=== PATIENT | male | born 1995 | race Caucasian/White ===

== ENCOUNTER 2020-05-29 23:26 | Inpatient (IN) | payer OTHER, SELFPAY ==
[2020-05-29 23:27] VITALS: BP 91/69; PULSE 105; RESP 18; TEMP 36.8; O2SAT 94; BMI 37.7
--- NOTE | 2020-05-29 23:36 | ED_ITS ---
HPI - Psych General: Chief Complaint: Psychiatric Symptoms Stated Complaint: SI Time Seen by Provider: 05/29/20 23:28 History of Present Illness: HPI Narrative: Patient is a 24-year-old male comes to the ED via ambulance for SI. Patient says on May 25 he had a suicide attempt by overdosing on unknown drug. Patient says he does have a past history of meth abuse for approximately 10 years. He admits to recent methamphetamine use within the past several days. Is complaining of having thoughts of self- harm and insomnia for the past 8 days. He states that he is currently depressed and anxious. He said his depression stems from his son passing away a couple years ago. Patient says he has been prescribed psych medications but has not been taking them but is not sure what meds he is on currently. patient would like to be admitted to the [facility]. MD complaint: suicidal ideation Associated symptoms: Reports depression and suicidal ideation; Deny auditory hallucinations or visual hallucinations Review of Systems Const: Denies: fever(s), chills or fatigue Eyes: Denies: change in vision or eye discomfort ENMT: Denies: throat pain, odynophagia, nasal discharge or nasal congestion Card: Denies: chest pain, palpitations, edema, swelling of feet/ankles, dyspnea on exertion or orthopnea Resp: Denies: dyspnea, productive cough or non-productive cough GI: Denies: abdominal pain, nausea, vomiting, diarrhea, constipation or hematochezia : Denies: flank pain, difficulty urinating, dysuria or hematuria Musc: Denies: neck pain, back pain or extremity swelling Skin/Breast: Denies: rash or new lesions Neuro: Denies: headache(s), numbness in extremities or weakness in extremities Psych: Reports: anxiety, depression, sleeping less and suicidal ideation; Denies: visual hallucinations or auditory hallucinations Physical Exam Const: COMMON NORMALS: patient oriented x3 and alert GENERAL APPEARANCE: cooperative and anxious HENMT: COMMON NORMALS: normocephalic HEAD & SCALP: normocephalic MOUTH: Normal oral and palatal mucosa present THROAT: posterior oropharynx normal and uvula midline Eye: COMMON NORMALS: Equal, round and reactive pupils present PUPIL: Yes Equal, round and reactive pupils present Neck/C-Spine: COMMON NORMALS: supple GENERAL: Yes normal visual inspection Resp: COMMON NORMALS: normal respiratory effort, No retractions, No use of accessory muscles and clear to auscultation bilaterally AUSCULTATION: clear to auscultation bilaterally Cardio: COMMON NORMALS: regular rate, regular rhythm, S1 normal heart sound present, S2 normal heart sound present, No gallops present (Cardio), No clicks present (Cardio), No murmurs present (Cardio) and Peripheral pulses 2+ throughout RATE: regular rate RHYTHM: regular rhythm HEART SOUNDS: S1 normal heart sound present and S2 normal heart sound present PERIPHERAL PULSES: Peripheral pulses 2+ throughout GI: COMMON NORMALS: Normal to inspection, nondistended, normoactive bowel sounds present, Soft to palpation, non-tender and no masses PALPATION: Yes Soft to palpation : COMMON NORMALS: Yes no CVA tenderness BLADDER/KIDNEY EXAM: Yes no CVA tenderness Back/Pelvis: COMMON NORMALS: no CVA tenderness Neuro: COMMON NORMALS: patient oriented x3 and moves all extremities SENSORIUM/ORIENTATION: Yes alert Psych: COMMON NORMALS: Normal thought process present APPEARANCE: Yes grossly normal ATTITUDE: Yes paranoid and Yes agitated ACTIVITY/MOTOR BEHAVIOR: Yes fidgeting, Yes hyperactivity and Yes restless SPEECH: Yes rapid MOOD & AFFECT: Yes anxious, Yes irritable (He gets slightly irritated when I asked him a question about his past.) and Yes tearful THOUGHT PROCESS: Normal thought process present THOUGHT CONTENT: Yes Suicidality present and No Hallucination(s) present ATTENTION/CONCENTRATION: Yes attention grossly intact and Yes concentration grossly intact MEMORY/COGNITION: Yes memory grossly intact and Yes cognition grossly intact INSIGHT: Limited insight present (Psych) JUDGEMENT: Limited judgement present (Psych) Skin: GENERAL SKIN EXAM: dry skin MDM - Psych MDM Narrative: Medical decision making narrative: Patient is a 24-year-old male comes to the ED with SI. History of methamphetamine abuse and states he tried to overdose on unknown drug on May 25, 2020. He currently is under the influence of methamphetamines. He has been depressed, anxious and has not been able to sleep for about 8 days. He has been thinking a lot about harming himself. Psych screening labs performed. I contacted Dr. Ziegler and told about patient case and he accepts admission of pt to [facility]. I completed and signed paperwork for affidavit and 96-hour hold in place today on file just in case patient wants to leave. Patient was transferred to [facility]. Lab Data: Attestation: I reviewed the patient's lab results. Labs: Lab Results 05/29/20 05/29/20 05/29/20 Range/Units 23:30 23:30 23:37 WBC 14.2 H (4.0-10.0) 10^3/ uL RBC 6.13 H (4.1-5.3) 10^6/u L Hgb 18.1 H (11.7-16.6) g/dL Hct 51.9 (42.0-52.0) % MCV 84.7 (80-94) fL MCH 29.5 (28.0-34.0) pg MCHC 34.9 (30.0-36.0) g/dL RDW 11.9 L (12.1-15.1) % Plt Count 280 (130-400) 10^3/c mm MPV 9.5 (7.4-10.4) fL Neut % (Auto) 57.7 % Lymph % (Auto) 26.0 % [place] % (Auto) 11.6 % Eos % (Auto) 3.7 % Baso % (Auto) 0.7 % Neut # (Auto) 8.17 H (1.8-7.7) 10^3/u L Lymph # (Auto) 3.7 (0.8-4.8) 10^3/u L [place] # (Auto) 1.6 H (0.2-0.9) 10^3/u L Eos # (Auto) 0.5 (0.0-0.8) 10^3/u L Baso # (Auto) 0.1 (0.0-0.1) 10^3/u L Nucleated RBC % (a uto) 0 % Nucleated RBCs # 0.0 /100WBC Sodium (136-145) mmol/L Potassium (3.5-5.1) mmol/L Chloride (98-107) mmol/L Carbon Dioxide (22-29) mmol/L Anion Gap (5-19) BUN (6-20) mg/dL Creatinine (0.7-1.2) mg/dL GFR Calculation (90-130) mL/min Glucose (65-115) mg/dL Calculated Osmolal ity (285-295) mOsm/k g Calcium (8.5-10.5) mg/dL Total Bilirubin (0.15-1.2) mg/dL AST (0-40) U/L ALT (0-41) U/L Alkaline Phosphata se (40-130) IU/L Total Protein (6.6-8.7) g/dL Albumin (3.5-5.2) g/dL Globulin (1.3-4.6) g/dL Urine Color Dark yellow (Yellow) Urine Appearance Hazy A (CLEAR) Urine pH 5 (5-7) Ur Specific Gravit y 1.025 (1.005-1.030) Urine Protein Trace (Negative) Urine Glucose (UA) Norm (Normal) Urine Ketones 1+ H (Negative) Urine Blood Neg (Negative) Urine Nitrate Negative (Negative) Urine Bilirubin 1+ H (Negative) Urine Urobilinogen 8 H (Negative) mg/dL Ur Leukocyte Ernestine ase Negative (Negative) Urine RBC 0-4 H (0-2) /hpf Urine WBC None (0-5) /hpf Ur Squamous Epith Cells 0-4 H (0-5) /hpf Amorphous Sediment Not Reportable Urine Bacteria 1+ H (NONE) /hpf Hyaline Casts 0-4 H /lpf Fine Granular Cast s 0-4 H /lpf Urine Mucus 4+ /hpf Salicylates (3-10) mg/dL Urine Opiates Scre en Negative (Negative) ng/mL Acetaminophen (10-30) ug/mL Ur Barbiturates Sc reen Negative (Negative) ng/mL Ur Phencyclidine S crn Negative (Negative) ng/mL Ur Amphetamines Sc reen Positive H (Negative) ng/mL U Benzodiazepines Scrn Negative (Negative) ng/mL Urine Cocaine Scre en Negative (Negative) ng/mL U Marijuana (THC) Screen Positive H (Negative) ng/mL Ethyl Alcohol (0-10) mg/dL 05/29/20 Range/Units 23:37 WBC (4.0-10.0) 10^3/ uL RBC (4.1-5.3) 10^6/u L Hgb (11.7-16.6) g/dL Hct (42.0-52.0) % MCV (80-94) fL MCH (28.0-34.0) pg MCHC (30.0-36.0) g/dL RDW (12.1-15.1) % Plt Count (130-400) 10^3/c mm MPV (7.4-10.4) fL Neut % (Auto) % Lymph % (Auto) % [place] % (Auto) % Eos % (Auto) % Baso % (Auto) % Neut # (Auto) (1.8-7.7) 10^3/u L Lymph # (Auto) (0.8-4.8) 10^3/u L [place] # (Auto) (0.2-0.9) 10^3/u L Eos # (Auto) (0.0-0.8) 10^3/u L Baso # (Auto) (0.0-0.1) 10^3/u L Nucleated RBC % (a uto) % Nucleated RBCs # /100WBC Sodium 136 (136-145) mmol/L Potassium 4.2 (3.5-5.1) mmol/L Chloride 99 (98-107) mmol/L Carbon Dioxide 24 (22-29) mmol/L Anion Gap 17.2 (5-19) BUN 18 (6-20) mg/dL Creatinine 0.9 (0.7-1.2) mg/dL GFR Calculation 102.8 (90-130) mL/min Glucose 116 H (65-115) mg/dL Calculated Osmolal ity 285 (285-295) mOsm/k g Calcium 10.0 (8.5-10.5) mg/dL Total Bilirubin 1.3 H (0.15-1.2) mg/dL AST 46 H (0-40) U/L ALT 57 H (0-41) U/L Alkaline Phosphata se 88 (40-130) IU/L Total Protein 8.3 (6.6-8.7) g/dL Albumin 5.0 (3.5-5.2) g/dL Globulin 3.3 (1.3-4.6) g/dL Urine Color (Yellow) Urine Appearance (CLEAR) Urine pH (5-7) Ur Specific Gravit y (1.005-1.030) Urine Protein (Negative) Urine Glucose (UA) (Normal) Urine Ketones (Negative) Urine Blood (Negative) Urine Nitrate (Negative) Urine Bilirubin (Negative) Urine Urobilinogen (Negative) mg/dL Ur Leukocyte Ernestine ase (Negative) Urine RBC (0-2) /hpf Urine WBC (0-5) /hpf Ur Squamous Epith Cells (0-5) /hpf Amorphous Sediment Urine Bacteria (NONE) /hpf Hyaline Casts /lpf Fine Granular Cast s /lpf Urine Mucus /hpf Salicylates < 0.3 L (3-10) mg/dL Urine Opiates Scre en (Negative) ng/mL Acetaminophen < 5.0 L (10-30) ug/mL Ur Barbiturates Sc reen (Negative) ng/mL Ur Phencyclidine S crn (Negative) ng/mL Ur Amphetamines Sc reen (Negative) ng/mL U Benzodiazepines Scrn (Negative) ng/mL Urine Cocaine Scre en (Negative) ng/mL U Marijuana (THC) Screen (Negative) ng/mL Ethyl Alcohol < 10 (0-10) mg/dL Discharge Plan Discharge Patient Disposition: Admitted As Inpatient Admit Provider: Delfino Ziegler Coding Level of Care Code ED [employer] for [employer] Fwd Exam Comprehensive
[2020-05-29 23:52] LABS: Basophils # 0.1 10^3/uL (0.0-0.1); Basophils % 0.7 %; Eosinophils # 0.5 10^3/uL (0.0-0.8); Eosinophils % 3.7 %; Hematocrit 51.9 % (42.0-52.0); Hemoglobin 18.1 g/dL (11.7-16.6); Lymphocytes # 3.7 10^3/uL (0.8-4.8); Mean Corpuscular HGB Conc 34.9 g/dL (30.0-36.0); Mean Corpuscular Hemoglobin 29.5 pg (28.0-34.0); Mean Corpuscular Volume 84.7 fL (80-94); Mean Platelet Volume 9.5 fL (7.4-10.4); Monocytes # 1.6 10^3/uL (0.2-0.9); Monocytes % 11.6 %; Neutrophils # 8.17 10^3/uL (1.8-7.7); Neutrophils % 57.7 %; Nucleated Red Blood Cells % 0 %; Platelet Count 280 10^3/cmm (130-400); Red Blood Count 6.13 10^6/uL (4.1-5.3); Red Cell Distribution Width 11.9 % (12.1-15.1); White Blood Count 14.2 10^3/uL (4.0-10.0)
[2020-05-30] VITALS (9 sets, daily range): BP systolic 91–142; BP diastolic 69–83; PULSE 90–136; RESP 13–18; TEMP 36.7–37; O2SAT 89–95
[2020-05-30 00:05] LABS: Acetaminophen < 5.0 ug/mL (10-30); Alanine Aminotransferase 57 U/L (0-41); Alcohol Level < 10 mg/dL (0-10); Alkaline Phosphatase 88 IU/L (40-130); Anion Gap 17.2 (5-19); Aspartate Amino Transferase 46 U/L (0-40); Blood Urea Nitrogen 18 mg/dL (6-20); Carbon Dioxide 24 mmol/L (22-29); Chloride 99 mmol/L (98-107); Creatinine Clr Calc Pharmacy 152.6881; Globulin 3.3 g/dL (1.3-4.6); Glomerular Filtration Rate 102.8 mL/min (90-130); Glucose 116 mg/dL (65-115); Osmolality Calculated 285 mOsm/kg (285-295); Potassium 4.2 mmol/L (3.5-5.1); Salicylate < 0.3 mg/dL (3-10); Sodium 136 mmol/L (136-145); Total Bilirubin 1.3 mg/dL (0.15-1.2); Total Protein 8.3 g/dL (6.6-8.7)
[2020-05-30] MEDS: LORazepam 2 mg/mL INJ 1 mL IM (00:11)
[2020-05-30 00:47] LABS: Amphetamines Screen Urine Positive (Negative); Barbiturates Screen Urine Negative (Negative); Benzodiazepines Screen Urine Negative (Negative); Cocaine Screen Urine Negative (Negative); Opiate Screen Urine Negative (Negative); PCP Screen Urine Negative (Negative); THC Screen Urine Positive (Negative)
[2020-05-30 00:49] LABS: Bilirubin Urine 1+ (Negative); Blood Urine Neg (Negative); Glucose Urine UA Norm (Normal); Ketones Urine 1+ (Negative); Leukocyte Esterase Urine Negative (Negative); Nitrate Urine Negative (Negative); Protein Urine Trace (Negative); Specific Gravity, Urine 1.025 (1.005-1.030); Urine Appearance Hazy (CLEAR); Urine Color Dark Yellow (Yellow); Urobilinogen Urine 8 mg/dL (Negative); pH Urine 5 (5-7)
[2020-05-30 00:51] LABS: Add Urine Culture? No; Bacteria Urine 1+ /hpf; Fine Granular Casts Urine 0-4 /lpf; Hyaline Casts Urine 0-4 /lpf; Mucus Urine 4+ /hpf; RBC Urine 0-4 /hpf (0-2); Squamous Epithelial Cell Urine 0-4 /hpf (0-5)
--- NOTE | 2020-05-30 12:02 | PC.NURSE ---
Agitation/Shortness of breath Patient came to the nurses station about 30 minutes ago demanding to use his inhaler that he brought in with him on admission. When asked who prescribed this medication and how frequently he was ordered to use it, he told staff that it his mother got the inhaler for him. Unable to tell us pharmacy or prescriber. Explained to the patient we would inform Dr. Ziegler of this situation and request for an inhaler. Dr. Ziegler gave order for RT to assess and treat. RT came to see patient and administer an albuterol inhaler at this time. Patient was near nurses station when RT went to administer inhaler and patient continued to raise voice and yell that this was stupid (due to there being a spacer on the inhaler), RT explained the need for the spacer, patient continued to be agitated and yelling at RT. Patient then walked away from nurses station and back to his room.
[2020-05-30] MEDS: albuterol 8 gm MDI 2 PUFF INHALATION ×3 (12:53→19:35)
--- NOTE | 2020-05-30 15:00 | PC.RESP ---
This therapist unable to scan medication d/t being called to code 10 over this medication. This therapist manually entered medication and time was altered by direct order of physician.
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
--- NOTE | 2020-05-30 22:51 | PC.NURSE ---
PM NOTES-- RESTING QUIETLY DURING ASSESSMENT,DENIES ANY NEEDS AT THIS TIME. PLEASANT.
[2020-05-31] MEDS: OLANZapine 5 mg ODT PO (04:48)
[2020-05-31] MEDS: albuterol 8 gm MDI 2 PUFF INHALATION ×2 (04:52→17:00)
--- NOTE | 2020-05-31 05:18 | PC.NURSE ---
PT EPISODE-- WANTING RT TX, WAS GIVEN TO HIM, GETTING WORKED UP AND WANTING TO LEAVE, USING ALOT OF PROFANITY, SECURITY AND INDUSTRIAL PIPEFITTER JOURNEYMAN CALLED. RT CALLED, GAVE PATIENT ANOTHER DOSE OF ALBUTEROL, PT THREW INHALER THROUGH WINDOW TO NURSES STATION. CONTINUED TO USE PROFANITY AT EVERYONE. NURSES FROM ER ALSO HERE TO ASSIST, PATIENT WANTING TO KEEP INHALER WITH HIM AT ALL TIMES, INST UNABLE TO DO THAT. DR CLARK CALLED AND TALKED TO RT, PT CAN HAVE INHALER EVERY 2 HR PRN, RENÉ GUEVARA HELPED TO CALM PATIENT DOWN, HE IS FINALLY RESTING IN HIS ROOM. APPEARS TO GET WORKED UP EASILY, RESTING QUIETLY AT THIS TIME..
[2020-05-31 06:00] VITALS: BP 128/76; PULSE 118; RESP 20; TEMP 37; O2SAT 88
[2020-05-31 13:25] VITALS: BP 110/68; PULSE 77; RESP 18; TEMP 37; O2SAT 93
--- NOTE | 2020-05-31 15:49 | PM.NPN ---
Subjective NPU Subjective: Interval history: Maurice presented today somewhat apologetic about yesterday. A long conversation about his inhaler and the reason why we were having concerns about his usage. We discussed the proper usage of an inhaler including spacer and how to take it into the lungs hold it and then release. We also discussed his history with medications which continues to be a lack of recognition of what medications were doing what at that time. We discussed the risks, benefits and alternatives of initiating Wellbutrin and Lamictal in the morning and he understood and agreed to proceed as is documented in this note. Mental Status Exam MSE Comments: This is an obese white male in hospital scrubs with limited grooming and improving eye contact. No abnormal movements except for psychomotor retardation, more cooperative with exam in mild distress. Speech was normal rate and decreased volume. Mood described as depressed, affect subdued. Thought process organized. Thought content: Patient endorsed suicidal ideation with a plan, there were no homicidal ideations. There are no delusions reported or noted, he denied any auditory or visual hallucinations. Attention and concentration appeared intact and memory was mostly reliable but none were formally tested. He is alert and oriented x3. Insight and judgment are limited but improving, impulse control is improving. Vitals/I&O/Wt Last Vital Signs Temp 98.2 F 05/31/20 19:17 Pulse 88 05/31/20 19:17 Resp 17 05/31/20 19:17 BP 114/75 05/31/20 19:17 Pulse Ox 93 05/31/20 19:17 Data NPU : 05/29/20 23:37 05/29/20 23:37 A&P Additional A&P Information (1) Major depression: (2) Anxiety: (3) PTSD (post-traumatic stress disorder): (4) Asthma: (5) Cannabis use disorder, moderate, in early remission, in controlled environment, dependence: (6) Methamphetamine use: Additional A&P Information This is a 24-year-old white male with a long history of trauma, family disruption, inpatient hospitalizations and active addiction who presents with significant mood dysregulation but not currently open to starting a medication. 1. Continue current medication. We will start Lamictal 25 mg p.o. every morning and Wellbutrin XL 150 mg p.o. every morning in the morning. 2. Continue every 15 minute checks for safety. 3. Encourage individual, group and milieu therapy. 4. Encourage sober living treatment after discharge at the highest level of care to which he is willing to commit. Involuntary Hold Information 96 Hour Hold: 96 Hour Involuntary Admission: No Attestations NPU Medical Necessity Statement*: Inpatient hospitalization is medically necessary and the clinically appropriate intervention at this time. We will monitor medications and make changes as indicated. Likely length of stay 3-5 days. Coding Level of Care Code Acute Calender Wind Up Helper for Geovanny Farley
[2020-05-31 17:00] VITALS: PULSE 77; RESP 18; O2SAT 93
[2020-05-31 19:17] VITALS: BP 114/75; PULSE 88; RESP 17; TEMP 36.8; O2SAT 93
[2020-05-31] MEDS: trazodone 50 mg Tablet PO (19:35)
[2020-05-31] MEDS: hyDROXYzine 25 mg Capsule 50 MG PO (19:35)
--- NOTE | 2020-05-31 19:40 | PC.RESP ---
Pt refused resp to give pt his tx and for resp to listen to breath sounds. Pt stated: I have been here for 3 days and you haven't done anything to help me since I have been here. Stated that I was here to provide his inhaler to him and to take care of him throughout the night, and the pt still refused. Nursing staff was notified. The pt and the nursing staff were both encouraged to call if the pt requested a tx. Will continue to monitor the pt.
--- NOTE | 2020-05-31 19:54 | PC.NURSE ---
Pt noted to be angry and irritated because respiratory staff would not leave his inhaler with him. pt has been told several times, since admission, by several different staff including Dr Ziegler, that no one is allowed to have any medications at bedside. Pt noted to get upset when Charge Nurse attempted to do assessment. Pt stated don't be asking me all these questions. i'm doing the same as i have been doing since i got here. Pt refused to allow nurse to listen to his heart or lungs. Pt was offered medication for sleep and anxiety, pt accepted and was given Trazodone 50mg po and Vistaril 50mg po.
--- NOTE | 2020-05-31 20:30 | PC.NURSE ---
Patient refused full assessment. Agitated and uncooperative. Assessment by observation. Patient appeared to NOT be in any Respiratory or cardiology distress.
[2020-06-01 06:00] VITALS: BP 112/65; PULSE 66; RESP 17; TEMP 36.5; O2SAT 92
[2020-06-01] MEDS: lamoTRIgine 25 mg Tablet PO (09:15)
[2020-06-01] MEDS: buPROPion XL (24 HR) 150 mg Tablet PO (09:15)
[2020-06-01 14:00] VITALS: BP 104/64; PULSE 90; RESP 20; TEMP 37.1; O2SAT 94
[2020-06-01 17:59] VITALS: PULSE 82; RESP 18; O2SAT 92
[2020-06-01] MEDS: albuterol 8 gm MDI 2 PUFF INHALATION (17:59)
[2020-06-01 18:01] VITALS: PULSE 85
[2020-06-01] MEDS: nicotine 2 mg Gum BUCCAL (18:29)
--- NOTE | 2020-06-01 18:56 | PM.NPN ---
Subjective NPU Subjective: Interval history: Maurice presented today reporting that he is feeling a lot better and feels optimistic. He reports that his body from [place] that he does some work for and is kind like a big brother has talked to him and said that he can come back there. We discussed making sure that he had some kind of reasonable follow-up so that the progress that he is made here is not stalled. We discussed the possibility of discharge tomorrow as he contracts for safety. Mental Status Exam MSE Comments: This is an obese white male in hospital scrubs with limited grooming and improving eye contact. No abnormal movements, more cooperative with exam in no acute distress. Speech was normal rate and volume. Mood described as better, affect brighter. Thought process organized. Thought content: Patient endorsed suicidal ideation with a plan, there were no homicidal ideations. There are no delusions reported or noted, he denied any auditory or visual hallucinations. Attention and concentration appeared intact and memory was mostly reliable but none were formally tested. He is alert and oriented x3. Insight and judgment are limited but improving, impulse control is improving. Vitals/I&O/Wt Last Vital Signs Temp 97.5 F L 06/01/20 20:08 Pulse 81 06/01/20 20:08 Resp 18 06/01/20 20:08 BP 135/74 06/01/20 20:08 Pulse Ox 95 06/01/20 20:08 06/01/20 14:59 Intake Total 240 / 240 Balance 240 / 240 Data NPU : 05/29/20 23:37 05/29/20 23:37 A&P Additional A&P Information (1) Major depression: (2) Anxiety: (3) PTSD (post-traumatic stress disorder): (4) Asthma: (5) Cannabis use disorder, moderate, in early remission, in controlled environment, dependence: (6) Methamphetamine use: Additional A&P Information This is a 24-year-old white male with a long history of trauma, family disruption, inpatient hospitalizations and active addiction who presents with significant mood dysregulation but not currently open to starting a medication. 1. Continue current medication. 2. Continue every 15 minute checks for safety. 3. Encourage individual, group and milieu therapy. 4. Encourage sober living treatment after discharge at the highest level of care to which he is willing to commit. Involuntary Hold Information 96 Hour Hold: 96 Hour Involuntary Admission: No Attestations NPU Medical Necessity Statement*: Inpatient hospitalization is medically necessary and the clinically appropriate intervention at this time. We will monitor medications and make changes as indicated. Likely length of stay 1-3 days. Coding Level of Care Code Acute Parts Clerk Plant Maintenance for Geovanny Farley
[2020-06-01 20:08] VITALS: BP 135/74; PULSE 81; RESP 18; TEMP 36.4; O2SAT 95
[2020-06-01] MEDS: trazodone 50 mg Tablet PO (21:17)
[2020-06-02 06:00] VITALS: BP 138/97; PULSE 76; RESP 17; TEMP 36.6; O2SAT 92
[2020-06-02 12:32] VITALS: BP 138/97; PULSE 76; RESP 17; TEMP 36.6; O2SAT 92
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
== END 2020-06-02 13:21 | disposition home or self-care (01) | DRG 880 ==
LOC: ER 05-30 → NP 05-30 00:48
PROVIDERS: Admitting Provider Psychiatry & Neurology Psychiatry; Emergency Provider Physician Assistant; Visit Provider Psychiatry & Neurology Psychiatry
DX: F41.8 Other specified anxiety disorders (principal); F15.20 Other stimulant dependence, uncomplicated; F43.11 Post-traumatic stress disorder, acute; Z91.5 Personal history of self-harm; F12.11 Cannabis abuse, in remission; G47.00 Insomnia, unspecified; Z62.810 Personal history of physical and sexual abuse in childhood
CPT/HCPCS: 12345; 80053; 80306; 80307; 81001; 85025; 94640; 94664; 96372; 99284; J2060; J3535

== ENCOUNTER 2021-07-26 02:48 | Emergency (ER) | payer OTHER, SELFPAY ==
[2021-07-26 02:49] VITALS: BP 110/74; PULSE 89; RESP 18; TEMP 36.9; O2SAT 95; BMI 36.5
--- NOTE | 2021-07-26 03:01 | ECG_ITS ---
[facility] Test Date: 2021-07-26 Pat Name: Maurice Pemberton Department: Room: Gender: Male Office Engineer: : 1995 Requested By: Joey Walker Order Number: [id number] MD: Brittney Calix M.D. Measurements Intervals [place] Rate: 72 P: 1 CO: 110 QRS: 50 QRSD: 81 T: 53 QT: 358 QTc: 393 Interpretive Statements SINUS RHYTHM WITH SINUS ARRHYTHMIA WITH SHORT CO INTERVAL No previous ECG available for comparison Electronically Signed On 07-26-2021 17:09:39 COMMERCIAL SALES REPRESENTATIVE by Brittney Calix M.D. [id number]
--- NOTE | 2021-07-26 03:01 | XRR_ITS ---
PROCEDURE INFORMATION: Exam: XR Chest Exam date and time: 07/26/2021 3:01 AM Age: 25 years old Clinical indication: Dyspnea; Additional info: SOB TECHNIQUE: Imaging protocol: XR of the chest. Views: 1 view. COMPARISON: CR Chest 1 [place] [id number] 04/20/2019 2:46 AM FINDINGS: Lungs: Unremarkable. No consolidation. Pleural spaces: Unremarkable. No pleural effusion. No pneumothorax. Heart/Mediastinum: Unremarkable. No cardiomegaly. Bones/joints: Unremarkable. XR/XR chest 1V portable [id number] IMPRESSION: No acute findings.
--- NOTE | 2021-07-26 03:05 | ED_ITS ---
HPI - SOB/Dyspnea General: Chief Complaint: Shortness of Breath/Dyspnea Stated Complaint: SOB Time Seen by Provider: 07/26/21 02:50 Source: patient, EMS and police Mode of arrival: EMS Limitations: no limitations History of Present Illness: HPI Narrative: 25-year-old male who is here from senior care. He states he has a long history of asthma and states that since he was arrested on Sunday has been having increased shortness of breath along with cough. He states his cough is made white much worse by laying flat and he states he been coughing and wheezing uncontrollably. States been using inhaler with minimal improvement. He is in no distress here 98% on room air able speak in full sentences denies any fever denies any chest pain. Associated symptoms: Deny abdominal pain, chest pain, fever(s), nausea or vomiting Review of Systems Const: Denies: fever(s), chills, body aches or change in appetite Eyes: Denies: blurry vision or eye discomfort ENMT: Denies: throat pain or dental pain Card: Denies: chest pain Resp: Reports: dyspnea and non-productive cough GI: Denies: abdominal pain, nausea, vomiting or diarrhea : Denies: dysuria Musc: Denies: neck pain or back pain Skin/Breast: Denies: rash Neuro: Denies: headache(s) Psych: Denies: depression Hao/Lymph: Denies: easy bruising All/Imm: Denies: urticaria PFS ED PFSH: Medical History (Updated 07/26/21 @ 03:36 by Joey Walker MD) Asthma Social History (Updated 07/26/21 @ 03:06 by Joey Walker MD) Smoking and tobacco status: current some day smoker Physical Exam Const: COMMON NORMALS: no acute distress, patient oriented x3 and healthy appearing HENMT: COMMON NORMALS: normocephalic and atraumatic HEAD & SCALP: normocephalic and atraumatic Eye: COMMON NORMALS: Equal, round and reactive pupils present and EOMs intact bilaterally PUPIL: Yes Equal, round and reactive pupils present Neck/C-Spine: COMMON NORMALS: full ROM and supple Chest: COMMONS NORMALS: normal inspection of the chest and normal palpation of entire chest wall Resp: COMMON NORMALS: normal respiratory effort, No retractions and No use of accessory muscles AUSCULTATION: wheezes (mild) Cardio: COMMON NORMALS: regular rate, regular rhythm and No murmurs present (Cardio) RATE: regular rate RHYTHM: regular rhythm GI: COMMON NORMALS: Normal to inspection, nondistended, normoactive bowel sounds present, Soft to palpation, non-tender and no masses PALPATION: Yes Soft to palpation Extremity: COMMON NORMALS: normal to inspection and full ROM Neuro: COMMON NORMALS: patient oriented x3, moves all extremities and no focal motor deficits Psych: COMMON NORMALS: mental status grossly normal, Normal thought process present and cooperative THOUGHT PROCESS: Normal thought process present Skin: COMMON NORMALS: no rashes or lesions noted and no wounds GENERAL SKIN EXAM: no rashes or lesions noted Course Vital Signs: Vital signs: Vital Signs Temperature 98.5 F 07/26/21 02:49 Pulse Rate 80 07/26/21 03:30 Respiratory Rate 22 H 07/26/21 03:30 Blood Pressure 110/74 07/26/21 02:49 Pulse Oximetry 95 07/26/21 03:30 MDM - SOB/Dyspnea Medical Decision Making Patient presents with shortness of breath from senior care likely from his asthma. He has no signs of pulmonary embolism, no signs of DVT. X-ray shows no signs of pneumonia or pneumothorax. EKG here is normal with normal sinus rhythm. He has been in no respiratory distress pulse ox has been 96 9 7% on room air. Patient given Decadron he is uses albuterol and he is to follow-up with PCP and return if worsening Covid test here was negative. Lab Data Labs/Radiology: Laboratory Results SARS-CoV-2 Ag (Rapid) Negative (Negative) 07/26/21 03:10 EKG Data EKG 1: I personally reviewed and interpreted this EKG as follows: EKG Interpretation Date: 07/26/21 EKG interpretation time: 03:06 Interpretation: nsr hr [address] or t wave abnormalities qrs 81 qtc 382 Discharge Plan Discharge Patient Disposition: Home Clinical Impression: Asthma with exacerbation Prescriptions: No Action Lamictal 100 mg tablet 100 mg PO DAILY 30 Days Qty: 30 1RF Rx Instructions: begin in 19 days when 25 mg complete bupropion HCl 150 mg Tablet Extended Release 24 Hr 150 mg PO DAILY 30 Days Qty: 30 1RF Ventolin HFA 90 mcg/actuation Hfa Aerosol Inhaler 2 puff inhalation Q4H PRN (Reason: Shortness Of Breath) 30 Days Qty: 1 1RF Discharge Orders: Discharge ED (Routine); Ordered 07/26/21 Ordered By: Joey Walker Discharge Diet: Advance as tolerated Discharge Activity: Resume usual activity Patient Instructions: Asthma (ED) Coding Level of Care Code ED Escort Vehicle Driver for Phillipg Fwd Exam Comprehensive
[2021-07-26 03:30] VITALS: PULSE 80; RESP 22; O2SAT 95
[2021-07-26 03:32] LABS: SARS Covid-2 Antigen Negative (Negative)
[2021-07-26] MEDS: dexamethasone 10 mg/mL INJ IM (03:32)
[2021-07-26 04:02] VITALS: BP 135/70; PULSE 80; RESP 18; O2SAT 96
== END 2021-07-26 04:03 | disposition home or self-care (01) ==
PROVIDERS: Emergency Provider Emergency Medicine
DX: J45.901 Unspecified asthma with (acute) exacerbation (principal); F17.210 Nicotine dependence, cigarettes, uncomplicated; Z20.822 Contact with and (suspected) exposure to COVID-19
CPT/HCPCS: 71045; 87426; 93005; 94640; 96372; 99283; J1100

== ENCOUNTER 2022-02-20 16:43 | Emergency (ER) | payer OTHER, SELFPAY ==
[2022-02-20 17:00] VITALS: BP 121/85; PULSE 67; RESP 18; TEMP 36.4; O2SAT 95; BMI 31.9
--- NOTE | 2022-02-20 17:43 | W.ED.PSYCHS ---
HPI - Psych General: Chief Complaint: Psychiatric Symptoms Stated Complaint: Psych Eval Time Seen by Provider: 02/20/22 17:18 Source: patient Mode of arrival: ambulatory History of Present Illness: 26-year-old male who presents to the emergency room to be admitted to the Neuropsych Unit. Have increased anxiety and depression he feels like is not able to function. He states he is thought about harming himself but has no plan or intent states he would never do it. He has not made any attempts in the past nor has he ever been admitted. His primary reason for presenting here is because he wants to be started on medications and wants to be admitted to the [facility] to avoid life stressors. MD complaint: suicidal ideation Onset (ago): week(s) Duration: intermittent Relieving factors: none Exacerbating factors: none Associated psychiatric symptoms: none Associated symptoms: Deny auditory hallucinations, visual hallucinations, delusions, depression, homicidal ideation, suicidal ideation or racing thoughts Review of Systems Const: Denies: fever(s), chills, body aches, change in appetite, fatigue or malaise ENMT: Denies: throat pain, ear or mastoid pain, nasal discharge or nasal congestion Card: Denies: chest pain, edema, dyspnea on exertion or orthopnea Resp: Denies: dyspnea, productive cough or non-productive cough GI: Denies: abdominal pain, nausea, vomiting, hematemesis, coffee ground emesis, diarrhea, constipation, bloating, hematochezia or melena : Denies: flank pain, dysuria, urinary frequency or urinary urgency Skin/Breast: Denies: rash or pruritus Psych: Denies: depression, visual hallucinations, auditory hallucinations, suicidal ideation or homicidal ideation [facility] PFSH: Medical History Asthma Social History Smoking and tobacco status: current some day smoker Physical Exam Const: COMMON NORMALS: no acute distress GENERAL APPEARANCE: cooperative and comfortable ORIENTATION/CONSCIOUSNESS: Yes awake, Yes oriented to person, Yes oriented to place and Yes oriented to time HENMT: COMMON NORMALS: normocephalic, atraumatic and hearing grossly normal bilaterally HEAD & SCALP: normocephalic and atraumatic Resp: COMMON NORMALS: normal respiratory effort, No retractions, No use of accessory muscles and clear to auscultation bilaterally AUSCULTATION: clear to auscultation bilaterally Cardio: COMMON NORMALS: regular rate, regular rhythm and No murmurs present (Cardio) RATE: regular rate RHYTHM: regular rhythm Neuro: SENSORIUM/ORIENTATION: Yes oriented to person, Yes oriented to place and Yes oriented to time Psych: THOUGHT CONTENT: No delusions Skin: COMMON NORMALS: no rashes or lesions noted GENERAL SKIN EXAM: no rashes or lesions noted Course Vital Signs: Vital signs: Vital Signs Temperature 97.5 F L 02/20/22 17:00 Pulse Rate 67 02/20/22 17:00 Respiratory Rate 18 02/20/22 17:00 Blood Pressure 121/85 02/20/22 17:00 Pulse Oximetry 95 02/20/22 17:00 MDM - Psych Medical Decision Making Really does not need to be admitted at this point but should be started on medications. We will make arrangement for him to go to [facility] for outpatient treatment. Patient usually states that he is not suicidal. There is no one else here with him that can provide an affidavit. Patient is demanding to be admitted and if not wants to leave admittedly. I do not have anything that would justify a 96-hour hold at this point. Patient is angry because he states he was told that he could come up here and check himself and he would be admitted and receive the treatment he is wanting. Try to discussed with him that is not what we would usually do in a case like this. Ultimately he left AMA. Medical Records I reviewed the patient's medical records. Lab Data I reviewed the patient's lab results. : 02/20/22 17:35 02/20/22 17:35 Laboratory Results WBC 10.1 10^3/uL (4.0-10.0) H 02/20/22 17:35 RBC 5.25 10^6/uL (4.1-5.3) 02/20/22 17:35 Hgb 15.8 g/dL (11.7-16.6) 02/20/22 17:35 Hct 47.1 % (42.0-52.0) 02/20/22 17:35 MCV 89.7 fl (80-94) 02/20/22 17:35 MCH 30.1 pg (28.0-34.0) 02/20/22 17:35 MCHC 33.5 g/dL (30.0-36.0) 02/20/22 17:35 RDW 12.2 % (12.1-15.1) 02/20/22 17:35 Plt Count 286 10^3/cmm (130-400) 02/20/22 17:35 MPV 9.4 fL (7.4-10.4) 02/20/22 17:35 Neut % (Auto) 45.6 % 02/20/22 17:35 Lymph % (Auto) 37.3 % 02/20/22 17:35 [place] % (Auto) 9.8 % 02/20/22 17:35 Eos % (Auto) 6.4 % 02/20/22 17:35 Baso % (Auto) 0.6 % 02/20/22 17:35 Neut # (Auto) 4.60 10^3/uL (1.8-7.7) 02/20/22 17:35 Lymph # (Auto) 3.8 10^3/uL (0.8-4.8) 02/20/22 17:35 [place] # (Auto) 1.0 10^3/uL (0.2-0.9) H 02/20/22 17:35 Eos # (Auto) 0.7 10^3/uL (0.0-0.8) 02/20/22 17:35 Baso # (Auto) 0.1 10^3/uL (0.0-0.1) 02/20/22 17:35 Nucleated RBC % (auto) 0 % 02/20/22 17:35 Nucleated RBCs # 0.0 /100WBC 02/20/22 17:35 Sodium 140 mmol/L (136-145) 02/20/22 17:35 Potassium 4.8 mmol/L (3.5-5.1) 02/20/22 17:35 Chloride 104 mmol/L (98-107) 02/20/22 17:35 Carbon Dioxide 27 mmol/L (22-29) 02/20/22 17:35 Anion Gap 13.8 (5-19) 02/20/22 17:35 BUN 16 mg/dL (6-20) 02/20/22 17:35 Creatinine 0.7 mg/dL (0.7-1.2) 02/20/22 17:35 GFR Calculation 135.3 mL/min (90-130) H 02/20/22 17:35 Glucose 85 mg/dL (65-115) 02/20/22 17:35 Calculated Osmolality 290 mOsm/kg (285-295) 02/20/22 17:35 Calcium 9.2 mg/dL (8.5-10.5) 02/20/22 17:35 Total Bilirubin 0.3 mg/dL (0.15-1.2) 02/20/22 17:35 AST 15 U/L (0-40) 02/20/22 17:35 ALT 23 U/L (0-41) 02/20/22 17:35 Alkaline Phosphatase 78 U/L (40-130) 02/20/22 17:35 Total Protein 6.7 g/dL (6.6-8.7) 02/20/22 17:35 Albumin 4.2 g/dL (3.5-5.2) 02/20/22 17:35 Globulin 2.5 g/dL (1.3-4.6) 02/20/22 17:35 Salicylates < 0.3 mg/dL (3-10) L 02/20/22 17:35 Acetaminophen < 5.0 ug/mL (10-30) L 02/20/22 17:35 Discharge Plan Discharge Patient Disposition: Home Clinical Impression: Major depression Condition: Stable Prescriptions: No Action Lamictal 100 mg tablet 100 mg PO DAILY 30 Days Qty: 30 1RF Rx Instructions: begin in 19 days when 25 mg complete bupropion HCl 150 mg Tablet Extended Release 24 Hr 150 mg PO DAILY 30 Days Qty: 30 1RF Ventolin HFA 90 mcg/actuation Hfa Aerosol Inhaler 2 puff inhalation Q4H PRN (Reason: Shortness Of Breath) 30 Days Qty: 1 1RF Discharge Orders: Discharge ED (Routine); Ordered 02/20/22 Ordered By: Stiven Lugo Discharge Diet: Usual diet Discharge Activity: Resume usual activity Patient Instructions: Opioid Safety Activity Restrictions/Additional Instructions: Patient left AMA. Coding Level of Care Code ED Blast Furnace Operator for Geovanny Farley
[2022-02-20 17:54] LABS: Basophils # 0.1 10^3/uL (0.0-0.1); Basophils % 0.6 %; Eosinophils # 0.7 10^3/uL (0.0-0.8); Eosinophils % 6.4 %; Hematocrit 47.1 % (42.0-52.0); Hemoglobin 15.8 g/dL (11.7-16.6); Lymphocytes # 3.8 10^3/uL (0.8-4.8); Lymphocytes % 37.3 %; Mean Corpuscular HGB Conc 33.5 g/dL (30.0-36.0); Mean Corpuscular Hemoglobin 30.1 pg (28.0-34.0); Mean Corpuscular Volume 89.7 fl (80-94); Mean Platelet Volume 9.4 fL (7.4-10.4); Monocytes % 9.8 %; Neutrophils % 45.6 %; Nucleated Red Blood Cells % 0 %; Platelet Count 286 10^3/cmm (130-400); Red Blood Count 5.25 10^6/uL (4.1-5.3); Red Cell Distribution Width 12.2 % (12.1-15.1); White Blood Count 10.1 10^3/uL (4.0-10.0)
[2022-02-20 18:13] LABS: Alanine Aminotransferase 23 U/L (0-41); Albumin Level 4.2 g/dL (3.5-5.2); Alkaline Phosphatase 78 U/L (40-130); Aspartate Amino Transferase 15 U/L (0-40); Blood Urea Nitrogen 16 mg/dL (6-20); Calcium 9.2 mg/dL (8.5-10.5); Carbon Dioxide 27 mmol/L (22-29); Chloride 104 mmol/L (98-107); Globulin 2.5 g/dL (1.3-4.6); Glomerular Filtration Rate 135.3 mL/min (90-130); Glucose 85 mg/dL (65-115); Osmolality Calculated 290 mOsm/kg (285-295); Sodium 140 mmol/L (136-145); Total Bilirubin 0.3 mg/dL (0.15-1.2); Total Protein 6.7 g/dL (6.6-8.7)
[2022-02-20 18:15] LABS: Acetaminophen < 5.0 ug/mL (10-30); Salicylate < 0.3 mg/dL (3-10)
[2022-02-20 18:34] LABS: Anion Gap 13.8 (5-19); Potassium 4.8 mmol/L (3.5-5.1)
== END 2022-02-20 17:51 | disposition home or self-care (01) ==
PROVIDERS: Emergency Provider Family Medicine
DX: F32.9 Major depressive disorder, single episode, unspecified (principal); F17.210 Nicotine dependence, cigarettes, uncomplicated
CPT/HCPCS: 36415; 80053; 80307; 85025; 99283

== ENCOUNTER 2022-05-14 21:42 | Emergency (ER) | payer OTHER, SELFPAY ==
[2022-05-14 21:47] VITALS: BP 151/79; PULSE 74; RESP 18; TEMP 36.6; O2SAT 97; BMI 30.1
[2022-05-14 22:07] LABS: Basophils % 0.6 %; Eosinophils # 0.7 10^3/uL (0.0-0.8); Eosinophils % 9.9 %; Hemoglobin 15.9 g/dL (11.7-16.6); Lymphocytes # 3.2 10^3/uL (0.8-4.8); Lymphocytes % 44.2 %; Mean Corpuscular HGB Conc 33.1 g/dL (30.0-36.0); Mean Corpuscular Hemoglobin 29.3 pg (28.0-34.0); Mean Corpuscular Volume 88.4 fl (80-94); Mean Platelet Volume 9.3 fL (7.4-10.4); Monocytes # 0.7 10^3/uL (0.2-0.9); Monocytes % 9.9 %; Neutrophils # 2.54 10^3/uL (1.8-7.7); Neutrophils % 35.1 %; Nucleated Red Blood Cells % 0 %; Platelet Count 232 10^3/cmm (130-400); Red Blood Count 5.43 10^6/uL (4.1-5.3); White Blood Count 7.2 10^3/uL (4.0-10.0)
[2022-05-14 22:25] LABS: Alanine Aminotransferase 18 U/L (0-41); Albumin Level 4.2 g/dL (3.5-5.2); Alkaline Phosphatase 81 U/L (40-130); Anion Gap 14.8 (5-19); Aspartate Amino Transferase 23 U/L (0-40); Blood Urea Nitrogen 18 mg/dL (6-20); Calcium 9.5 mg/dL (8.5-10.5); Carbon Dioxide 30 mmol/L (22-29); Chloride 100 mmol/L (98-107); Creatinine Clr Calc Pharmacy 150.9892; Globulin 3.7 g/dL (1.3-4.6); Glucose 100 mg/dL (65-115); Osmolality Calculated 294 mOsm/kg (285-295); Potassium 3.8 mmol/L (3.5-5.1); Sodium 141 mmol/L (136-145); Thyroid Stimulating Hormone 0.43 uIU/mL (0.27-4.20); Total Bilirubin 0.3 mg/dL (0.15-1.2); Total Protein 7.9 g/dL (6.6-8.7)
[2022-05-14 22:29] LABS: Acetaminophen < 5.0 ug/mL (10-30); Alcohol Level < 10 mg/dL (0-10); Salicylate < 0.3 mg/dL (3-10)
[2022-05-14 22:52] LABS: Slide Review Slide Review Perform
[2022-05-14 22:54] VITALS: BP 121/81; PULSE 73; RESP 14; TEMP 36.8; O2SAT 96
--- NOTE | 2022-05-14 22:54 | ECG_ITS ---
[facility] Test Date: 2022-05-14 Pat Name: Maurice Pemberton Department: Room: Gender: Male Rebeamer: : 1995 Requested By: Camron Singh Order Number: [id number] Nagy MD: Blake Lewis M.D. Measurements Intervals [place] Rate: 81 P: 35 NV: 117 QRS: 59 QRSD: 80 T: 66 QT: 376 QTc: 437 Interpretive Statements SINUS RHYTHM WITH SINUS ARRHYTHMIA WITH SHORT NV INTERVAL Compared to ECG 07/26/2021 03:06:46 No significant changes Electronically Signed On 05-15-2022 17:08:51 AUTO SERVICE INSTRUCTOR by Blake Lewis M.D. [email or web address]
[2022-05-14 23:29] LABS: SARS Covid-2 Antigen negative (Negative)
[2022-05-14] MEDS: OLANZapine 10 mg ODT 20 MG PO (23:38)
[2022-05-14] MEDS: LORazepam 2 mg Tablet PO (23:38)
[2022-05-15] VITALS: BP 125/79; PULSE 70; RESP 18; O2SAT 99
[2022-05-15 00:13] LABS: Amphetamines Screen Urine Positive (Negative); Barbiturates Screen Urine Negative (Negative); Benzodiazepines Screen Urine Negative (Negative); Cocaine Screen Urine Negative (Negative); Opiate Screen Urine Negative (Negative); PCP Screen Urine Negative (Negative); THC Screen Urine Positive (Negative); Urine Appearance Clear (CLEAR); Urine Color Yellow (Yellow)
[2022-05-15 00:14] LABS: Bilirubin Urine Neg (Negative); Blood Urine 2+ (Negative); Glucose Urine UA Norm (Normal); Ketones Urine 1+ (Negative); Leukocyte Esterase Urine Negative (Negative); Nitrate Urine Negative (Negative); Protein Urine 1+ (Negative); Specific Gravity, Urine 1.025 (1.005-1.030); Urobilinogen Urine 4 mg/dL (Negative); pH Urine 5 (5-7)
[2022-05-15 00:17] LABS: Add Urine Microscopic? YES
[2022-05-15 00:18] LABS: WBC Urine 0-4 /hpf (0-5)
[2022-05-15 00:19] LABS: Add Urine Culture? No
--- NOTE | 2022-05-15 00:25 | ED.C_ITS ---
Documented by User: Camron Humphrey DO 05/15/22 03:58 HPI - Psych General: Chief Complaint: Psychiatric Symptoms Stated Complaint: Si Time Seen by Provider: 05/14/22 21:47 Source: patient History of Present Illness: 26-year-old male with a history of asthma, depression, cannabis and methamphetamine abuse. He presents with increased use of methamphetamine recently. He has been more depressed. He has had some suicidal thoughts. When asked if he had a plan, he says I suppose I would go to my hometown and hang myself with a rope . He presents voluntarily asking for help. MD complaint: suicidal ideation, feels depressed and other Onset (ago): day(s) Duration: constant History of same: Yes Relieving factors: none Exacerbating factors: drug use Context: recent drug abuse Associated psychiatric symptoms: suicidal ideation Associated symptoms: Reports auditory hallucinations, depression, suicidal ideation and racing thoughts; Deny visual hallucinations or homicidal ideation Treatments prior to arrival: none If self harm: admits thoughts of self harm Review of Systems Const: Denies: fever(s) Eyes: Denies: change in vision ENMT: Denies: throat pain Card: Denies: chest pain, palpitations or irregular heart rhythm Resp: Reports: dyspnea and non-productive cough (Chronic history of asthma); Denies: productive cough GI: Denies: abdominal pain or vomiting : Denies: flank pain Skin/Breast: Denies: rash Neuro: Denies: headache(s) Psych: Reports: depression, auditory hallucinations and suicidal ideation; Denies: visual hallucinations or homicidal ideation ON LICENSE OF [facility] ED PFSH: Medical History Asthma Social History Smoking and tobacco status: current some day smoker Physical Exam Const: COMMON NORMALS: no acute distress GENERAL APPEARANCE: cooperative; not ill appearing and not frail appearing HENMT: COMMON NORMALS: normocephalic, atraumatic and Normal external nose present HEAD & SCALP: normocephalic and atraumatic FACE & SINUS: normal facial exam and face symmetric NOSE: Normal external nose present Eye: COMMON NORMALS: Equal, round and reactive pupils present and EOMs intact bilaterally PUPIL: Yes Equal, round and reactive pupils present Neck/C-Spine: GENERAL: Yes trachea midline Chest: CHEST: Yes Symmetrical chest wall rise Resp: COMMON NORMALS: normal respiratory effort, No retractions, No use of accessory muscles and clear to auscultation bilaterally AUSCULTATION: clear to auscultation bilaterally Cardio: COMMON NORMALS: regular rate and regular rhythm RATE: regular rate RHYTHM: regular rhythm GI: COMMON NORMALS: Normal to inspection, nondistended, normoactive bowel sounds present Extremity: COMMON NORMALS: no pedal edema Neuro: ALINE COMA SCALE: document GCS findings [place] coma scale eye opening: Spontaneous [place] coma scale verbal response: Orientated Aline coma scale motor response: Obey commands [place] coma scale total score: 15 SENSORY EXAM: Yes extremities (intact) Psych: COMMON NORMALS: cooperative and speech normal ATTITUDE: Yes Guarded attititude/behavior present and Yes agitated ACTIVITY/MOTOR BEHAVIOR: Yes psychomotor agitation and Yes fidgeting SPEECH: Yes normal speech MOOD & AFFECT: Yes expansive affect THOUGHT PROCESS: Circumstantial thought process present THOUGHT CONTENT: Yes Suicidality present and No Homicidality present ATTENTION/CONCENTRATION: Yes concentration grossly intact and Yes attention grossly impaired MEMORY/COGNITION: Yes memory grossly intact and Yes cognition grossly intact INSIGHT: Fair insight present (Psych) JUDGEMENT: Limited judgement present (Psych) Skin: COMMON NORMALS: no rashes or lesions noted GENERAL SKIN EXAM: no rashes or lesions noted Course Vital Signs: Vital signs: Vital Signs Temperature 98.2 F 05/14/22 22:54 Pulse Rate 88 05/15/22 14:25 Respiratory Rate 16 05/15/22 14:25 Blood Pressure 128/71 05/15/22 14:25 Pulse Oximetry 99 05/15/22 14:25 Oxygen Delivery Me thod 05/15/22 04:15 [facility] - Psych Medical Decision Making Patient is quite medically stable. He has been compliant in the ER. No violence. He is given Zyprexa Zydis and Ativan to help him rest, as he is a bit manic. Medically he is fine. We have no beds available at our facility in the neuropsychiatric unit. We will reach out to other appropriate facilities at this point. 3:56 AM: We have contacted multiple facilities. No beds seem to be available essentially statewide. We will continue our search. In the meantime, he remains medically stable, calm, and cooperative. Lab Data 05/14/22 21:53 05/14/22 21:53 Laboratory Results WBC 7.2 10^3/uL (4.0-10.0) 05/14/22 21:53 RBC 5.43 10^6/uL (4.1-5.3) H 05/14/22 21:53 Hgb 15.9 g/dL (11.7-16.6) 05/14/22 21:53 Hct 48.0 % (42.0-52.0) 05/14/22 21:53 MCV 88.4 fl (80-94) 05/14/22 21:53 MCH 29.3 pg (28.0-34.0) 05/14/22 21:53 MCHC 33.1 g/dL (30.0-36.0) 05/14/22 21:53 RDW 12.0 % (12.1-15.1) L 05/14/22 21:53 Plt Count 232 10^3/cmm (130-400) 05/14/22 21:53 MPV 9.3 fL (7.4-10.4) 05/14/22 21:53 Neut % (Auto) 35.1 % 05/14/22 21:53 Lymph % (Auto) 44.2 % 05/14/22 21:53 [place] % (Auto) 9.9 % 05/14/22 21:53 Eos % (Auto) 9.9 % 05/14/22 21:53 Baso % (Auto) 0.6 % 05/14/22 21:53 Neut # (Auto) 2.54 10^3/uL (1.8-7.7) 05/14/22 21:53 Lymph # (Auto) 3.2 10^3/uL (0.8-4.8) 05/14/22 21:53 [place] # (Auto) 0.7 10^3/uL (0.2-0.9) 05/14/22 21:53 Eos # (Auto) 0.7 10^3/uL (0.0-0.8) 05/14/22 21:53 Baso # (Auto) 0.0 10^3/uL (0.0-0.1) 05/14/22 21:53 Nucleated RBC % (auto) 0 % 05/14/22 21:53 Nucleated RBCs # 0.0 /100WBC 05/14/22 21:53 Sodium 141 mmol/L (136-145) 05/14/22 21:53 Potassium 3.8 mmol/L (3.5-5.1) 05/14/22 21:53 Chloride 100 mmol/L (98-107) 05/14/22 21:53 Carbon Dioxide 30 mmol/L (22-29) H 05/14/22 21:53 Anion Gap 14.8 (5-19) 05/14/22 21:53 BUN 18 mg/dL (6-20) 05/14/22 21:53 Creatinine 0.8 mg/dL (0.7-1.2) 05/14/22 21:53 GFR Calculation 116.0 mL/min (90-130) 05/14/22 21:53 Glucose 100 mg/dL (65-115) 05/14/22 21:53 Calculated Osmolality 294 mOsm/kg (285-295) 05/14/22 21:53 Calcium 9.5 mg/dL (8.5-10.5) 05/14/22 21:53 Total Bilirubin 0.3 mg/dL (0.15-1.2) 05/14/22 21:53 AST 23 U/L (0-40) 05/14/22 21:53 ALT 18 U/L (0-41) 05/14/22 21:53 Alkaline Phosphatase 81 U/L (40-130) 05/14/22 21:53 Total Protein 7.9 g/dL (6.6-8.7) 05/14/22 21:53 Albumin 4.2 g/dL (3.5-5.2) 05/14/22 21:53 Globulin 3.7 g/dL (1.3-4.6) 05/14/22 21:53 TSH 0.43 uIU/mL (0.27-4.20) 05/14/22 21:53 Urine Color Yellow (Yellow) 05/14/22 23:45 Urine Appearance Clear (CLEAR) 05/14/22 23:45 Urine pH 5 (5-7) 05/14/22 23:45 Ur Specific [place] 1.025 (1.005-1.030) 05/14/22 23:45 Urine Protein 1+ (Negative) H 05/14/22 23:45 Urine Glucose (UA) Norm (Normal) 05/14/22 23:45 Urine Ketones 1+ (Negative) H 05/14/22 23:45 Urine Blood 2+ (Negative) H 05/14/22 23:45 Urine Nitrate Negative (Negative) 05/14/22 23:45 Urine Bilirubin Neg (Negative) 05/14/22 23:45 Urine Urobilinogen 4 mg/dL (Negative) H 05/14/22 23:45 Ur Leukocyte Esterase Negative (Negative) 05/14/22 23:45 Urine RBC 10-15 /hpf (0-2) H 05/14/22 23:45 Urine WBC 0-4 /hpf (0-5) H 05/14/22 23:45 Ur Squamous Epith Cells None /hpf (0-5) 05/14/22 23:45 Amorphous Sediment Not Reportable 05/14/22 23:45 Urine Bacteria None /hpf (NONE) 05/14/22 23:45 Salicylates < 0.3 mg/dL (3-10) L 05/14/22 21:53 Urine Opiates Screen Negative ng/mL (Negative) 05/14/22 23:45 Acetaminophen < 5.0 ug/mL (10-30) L 05/14/22 21:53 Ur Barbiturates Screen Negative ng/mL (Negative) 05/14/22 23:45 Ur Phencyclidine Scrn Negative ng/mL (Negative) 05/14/22 23:45 Ur Amphetamines Screen Positive ng/mL (Negative) H 05/14/22 23:45 U Benzodiazepines Scrn Negative ng/mL (Negative) 05/14/22 23:45 Urine Cocaine Screen Negative ng/mL (Negative) 05/14/22 23:45 U Marijuana (THC) Screen Positive ng/mL (Negative) H 05/14/22 23:45 Ethyl Alcohol < 10 mg/dL (0-10) 05/14/22 21:53 SARS-CoV-2 Ag (Rapid) negative (Negative) 05/14/22 23:02 Discharge Plan Discharge Patient Disposition: Xfer Psychiatric Hosp Clinical Impression: Suicidal ideation, Major depression, Methamphetamine use, Cluster B personality disorder in adult Condition: Stable Prescriptions: No Action Unable to Assess Sign Out Sign Out Data: Patient Sign Out occurred on 05/15/22 at 07:27. Patient's care was discussed, and care was transferred from to Stiven Lugo DO. Coding Level of Care Code ED Licensed Nurse Practitioner for Chg Fwd Exam Comprehensive Documented by User: Fabrice Storm MD 05/15/22 10:11 HPI - Psych General: Chief Complaint: Psychiatric Symptoms Stated Complaint: Si Time Seen by Provider: 05/14/22 21:47 PFSH ED PFSH: Medical History Asthma Social History Smoking and tobacco status: current some day smoker Physical Exam Neuro: ALINE COMA SCALE: document GCS findings Aline coma scale total score: 15 Course Vital Signs: Vital signs: Vital Signs Temperature 98.2 F 05/14/22 22:54 Pulse Rate 88 05/15/22 14:25 Respiratory Rate 16 05/15/22 14:25 Blood Pressure 128/71 05/15/22 14:25 Pulse Oximetry 99 05/15/22 14:25 Oxygen Delivery Me thod 05/15/22 04:15 MDM - Psych Lab Data 05/14/22 21:53 05/14/22 21:53 Laboratory Results WBC 7.2 10^3/uL (4.0-10.0) 05/14/22 21:53 RBC 5.43 10^6/uL (4.1-5.3) H 05/14/22 21:53 Hgb 15.9 g/dL (11.7-16.6) 05/14/22 21:53 Hct 48.0 % (42.0-52.0) 05/14/22 21:53 MCV 88.4 fl (80-94) 05/14/22 21:53 MCH 29.3 pg (28.0-34.0) 05/14/22 21:53 MCHC 33.1 g/dL (30.0-36.0) 05/14/22 21:53 RDW 12.0 % (12.1-15.1) L 05/14/22 21:53 Plt Count 232 10^3/cmm (130-400) 05/14/22 21:53 MPV 9.3 fL (7.4-10.4) 05/14/22 21:53 Neut % (Auto) 35.1 % 05/14/22 21:53 Lymph % (Auto) 44.2 % 05/14/22 21:53 [place] % (Auto) 9.9 % 05/14/22 21:53 Eos % (Auto) 9.9 % 05/14/22 21:53 Baso % (Auto) 0.6 % 05/14/22 21:53 Neut # (Auto) 2.54 10^3/uL (1.8-7.7) 05/14/22 21:53 Lymph # (Auto) 3.2 10^3/uL (0.8-4.8) 05/14/22 21:53 [place] # (Auto) 0.7 10^3/uL (0.2-0.9) 05/14/22 21:53 Eos # (Auto) 0.7 10^3/uL (0.0-0.8) 05/14/22 21:53 Baso # (Auto) 0.0 10^3/uL (0.0-0.1) 05/14/22 21:53 Nucleated RBC % (auto) 0 % 05/14/22 21:53 Nucleated RBCs # 0.0 /100WBC 05/14/22 21:53 Sodium 141 mmol/L (136-145) 05/14/22 21:53 Potassium 3.8 mmol/L (3.5-5.1) 05/14/22 21:53 Chloride 100 mmol/L (98-107) 05/14/22 21:53 Carbon Dioxide 30 mmol/L (22-29) H 05/14/22 21:53 Anion Gap 14.8 (5-19) 05/14/22 21:53 BUN 18 mg/dL (6-20) 05/14/22 21:53 Creatinine 0.8 mg/dL (0.7-1.2) 05/14/22 21:53 GFR Calculation 116.0 mL/min (90-130) 05/14/22 21:53 Glucose 100 mg/dL (65-115) 05/14/22 21:53 Calculated Osmolality 294 mOsm/kg (285-295) 05/14/22 21:53 Calcium 9.5 mg/dL (8.5-10.5) 05/14/22 21:53 Total Bilirubin 0.3 mg/dL (0.15-1.2) 05/14/22 21:53 AST 23 U/L (0-40) 05/14/22 21:53 ALT 18 U/L (0-41) 05/14/22 21:53 Alkaline Phosphatase 81 U/L (40-130) 05/14/22 21:53 Total Protein 7.9 g/dL (6.6-8.7) 05/14/22 21:53 Albumin 4.2 g/dL (3.5-5.2) 05/14/22 21:53 Globulin 3.7 g/dL (1.3-4.6) 05/14/22 21:53 TSH 0.43 uIU/mL (0.27-4.20) 05/14/22 21:53 Urine Color Yellow (Yellow) 05/14/22 23:45 Urine Appearance Clear (CLEAR) 05/14/22 23:45 Urine pH 5 (5-7) 05/14/22 23:45 Ur Specific [place] 1.025 (1.005-1.030) 05/14/22 23:45 Urine Protein 1+ (Negative) H 05/14/22 23:45 Urine Glucose (UA) Norm (Normal) 05/14/22 23:45 Urine Ketones 1+ (Negative) H 05/14/22 23:45 Urine Blood 2+ (Negative) H 05/14/22 23:45 Urine Nitrate Negative (Negative) 05/14/22 23:45 Urine Bilirubin Neg (Negative) 05/14/22 23:45 Urine Urobilinogen 4 mg/dL (Negative) H 05/14/22 23:45 Ur Leukocyte Esterase Negative (Negative) 05/14/22 23:45 Urine RBC 10-15 /hpf (0-2) H 05/14/22 23:45 Urine WBC 0-4 /hpf (0-5) H 05/14/22 23:45 Ur Squamous Epith Cells None /hpf (0-5) 05/14/22 23:45 Amorphous Sediment Not Reportable 05/14/22 23:45 Urine Bacteria None /hpf (NONE) 05/14/22 23:45 Salicylates < 0.3 mg/dL (3-10) L 05/14/22 21:53 Urine Opiates Screen Negative ng/mL (Negative) 05/14/22 23:45 Acetaminophen < 5.0 ug/mL (10-30) L 05/14/22 21:53 Ur Barbiturates Screen Negative ng/mL (Negative) 05/14/22 23:45 Ur Phencyclidine Scrn Negative ng/mL (Negative) 05/14/22 23:45 Ur Amphetamines Screen Positive ng/mL (Negative) H 05/14/22 23:45 U Benzodiazepines Scrn Negative ng/mL (Negative) 05/14/22 23:45 Urine Cocaine Screen Negative ng/mL (Negative) 05/14/22 23:45 U Marijuana (THC) Screen Positive ng/mL (Negative) H 05/14/22 23:45 Ethyl Alcohol < 10 mg/dL (0-10) 05/14/22 21:53 SARS-CoV-2 Ag (Rapid) negative (Negative) 05/14/22 23:02 Discharge Plan Discharge Patient Disposition: Xfer Psychiatric Hosp Clinical Impression: Suicidal ideation, Major depression, Methamphetamine use, Cluster B personality disorder in adult Condition: Stable Prescriptions: No Action Unable to Assess Sign Out Sign Out Data: Patient Sign Out occurred on 05/15/22 at 07:27. Patient's care was discussed, and care was transferred from to Stiven Lugo DO. Coding Level of Care Code ED Licensed Nurse Practitioner for Chg Fwd Exam Comprehensive Documented by User: Stiven Lugo DO 05/15/22 15:47 HPI - Psych General: Chief Complaint: Psychiatric Symptoms Stated Complaint: Si Time Seen by Provider: 05/14/22 21:47 PFSH ED PFSH: Medical History Asthma Social History Smoking and tobacco status: current some day smoker Physical Exam Neuro: ALINE COMA SCALE: document GCS findings [place] coma scale total score: 15 Course Vital Signs: Vital signs: Vital Signs Temperature 98.2 F 05/14/22 22:54 Pulse Rate 88 05/15/22 14:25 Respiratory Rate 16 05/15/22 14:25 Blood Pressure 128/71 05/15/22 14:25 Pulse Oximetry 99 05/15/22 14:25 Oxygen Delivery Me thod 05/15/22 04:15 MDM - Psych Medical Decision Making Patient is quite medically stable. He has been compliant in the ER. No violence. He is given Zyprexa Zydis and Ativan to help him rest, as he is a bit manic. Medically he is fine. We have no beds available at our facility in the neuropsychiatric unit. We will reach out to other appropriate facilities at this point. 3:56 AM: We have contacted multiple facilities. No beds seem to be available essentially statewide. We will continue our search. In the meantime, he remains medically stable, calm, and cooperative. 05/15/2022 12:51 PM care assumed at change of shift patient is somewhat sedate he is not had any behavioral outburst he admits to methamphetamine use review the chart he was having hallucinations when he arrived he admitted to increased use of methamphetamine use recently was depressed and had plan to harm himself by hanging himself with a rope. We are working on placement affidavit completed. Staff still working on finding facility with available bed. Bed found [facility] [place] transfer via ambulance in good condition Lab Data 05/14/22 21:53 05/14/22 21:53 Laboratory Results WBC 7.2 10^3/uL (4.0-10.0) 05/14/22 21:53 RBC 5.43 10^6/uL (4.1-5.3) H 05/14/22 21:53 Hgb 15.9 g/dL (11.7-16.6) 05/14/22 21:53 Hct 48.0 % (42.0-52.0) 05/14/22 21:53 MCV 88.4 fl (80-94) 05/14/22 21:53 MCH 29.3 pg (28.0-34.0) 05/14/22 21:53 MCHC 33.1 g/dL (30.0-36.0) 05/14/22 21:53 RDW 12.0 % (12.1-15.1) L 05/14/22 21:53 Plt Count 232 10^3/cmm (130-400) 05/14/22 21:53 MPV 9.3 fL (7.4-10.4) 05/14/22 21:53 Neut % (Auto) 35.1 % 05/14/22 21:53 Lymph % (Auto) 44.2 % 05/14/22 21:53 [place] % (Auto) 9.9 % 05/14/22 21:53 Eos % (Auto) 9.9 % 05/14/22 21:53 Baso % (Auto) 0.6 % 05/14/22 21:53 Neut # (Auto) 2.54 10^3/uL (1.8-7.7) 05/14/22 21:53 Lymph # (Auto) 3.2 10^3/uL (0.8-4.8) 05/14/22 21:53 [place] # (Auto) 0.7 10^3/uL (0.2-0.9) 05/14/22 21:53 Eos # (Auto) 0.7 10^3/uL (0.0-0.8) 05/14/22 21:53 Baso # (Auto) 0.0 10^3/uL (0.0-0.1) 05/14/22 21:53 Nucleated RBC % (auto) 0 % 05/14/22 21:53 Nucleated RBCs # 0.0 /100WBC 05/14/22 21:53 Sodium 141 mmol/L (136-145) 05/14/22 21:53 Potassium 3.8 mmol/L (3.5-5.1) 05/14/22 21:53 Chloride 100 mmol/L (98-107) 05/14/22 21:53 Carbon Dioxide 30 mmol/L (22-29) H 05/14/22 21:53 Anion Gap 14.8 (5-19) 05/14/22 21:53 BUN 18 mg/dL (6-20) 05/14/22 21:53 Creatinine 0.8 mg/dL (0.7-1.2) 05/14/22 21:53 GFR Calculation 116.0 mL/min (90-130) 05/14/22 21:53 Glucose 100 mg/dL (65-115) 05/14/22 21:53 Calculated Osmolality 294 mOsm/kg (285-295) 05/14/22 21:53 Calcium 9.5 mg/dL (8.5-10.5) 05/14/22 21:53 Total Bilirubin 0.3 mg/dL (0.15-1.2) 05/14/22 21:53 AST 23 U/L (0-40) 05/14/22 21:53 ALT 18 U/L (0-41) 05/14/22 21:53 Alkaline Phosphatase 81 U/L (40-130) 05/14/22 21:53 Total Protein 7.9 g/dL (6.6-8.7) 05/14/22 21:53 Albumin 4.2 g/dL (3.5-5.2) 05/14/22 21:53 Globulin 3.7 g/dL (1.3-4.6) 05/14/22 21:53 TSH 0.43 uIU/mL (0.27-4.20) 05/14/22 21:53 Urine Color Yellow (Yellow) 05/14/22 23:45 Urine Appearance Clear (CLEAR) 05/14/22 23:45 Urine pH 5 (5-7) 05/14/22 23:45 Ur Specific [place] 1.025 (1.005-1.030) 05/14/22 23:45 Urine Protein 1+ (Negative) H 05/14/22 23:45 Urine Glucose (UA) Norm (Normal) 05/14/22 23:45 Urine Ketones 1+ (Negative) H 05/14/22 23:45 Urine Blood 2+ (Negative) H 05/14/22 23:45 Urine Nitrate Negative (Negative) 05/14/22 23:45 Urine Bilirubin Neg (Negative) 05/14/22 23:45 Urine Urobilinogen 4 mg/dL (Negative) H 05/14/22 23:45 Ur Leukocyte Esterase Negative (Negative) 05/14/22 23:45 Urine RBC 10-15 /hpf (0-2) H 05/14/22 23:45 Urine WBC 0-4 /hpf (0-5) H 05/14/22 23:45 Ur Squamous Epith Cells None /hpf (0-5) 05/14/22 23:45 Amorphous Sediment Not Reportable 05/14/22 23:45 Urine Bacteria None /hpf (NONE) 05/14/22 23:45 Salicylates < 0.3 mg/dL (3-10) L 05/14/22 21:53 Urine Opiates Screen Negative ng/mL (Negative) 05/14/22 23:45 Acetaminophen < 5.0 ug/mL (10-30) L 05/14/22 21:53 Ur Barbiturates Screen Negative ng/mL (Negative) 05/14/22 23:45 Ur Phencyclidine Scrn Negative ng/mL (Negative) 05/14/22 23:45 Ur Amphetamines Screen Positive ng/mL (Negative) H 05/14/22 23:45 U Benzodiazepines Scrn Negative ng/mL (Negative) 05/14/22 23:45 Urine Cocaine Screen Negative ng/mL (Negative) 05/14/22 23:45 U Marijuana (THC) Screen Positive ng/mL (Negative) H 05/14/22 23:45 Ethyl Alcohol < 10 mg/dL (0-10) 05/14/22 21:53 SARS-CoV-2 Ag (Rapid) negative (Negative) 05/14/22 23:02 Discharge Plan Discharge Patient Disposition: Xfer Psychiatric Hosp Clinical Impression: Suicidal ideation, Major depression, Methamphetamine use, Cluster B personality disorder in adult Condition: Stable Prescriptions: No Action Unable to Assess Sign Out Sign Out Data: Patient Sign Out occurred on 05/15/22 at 07:27. Patient's care was discussed, and care was transferred from to Stiven Lugo DO. Coding Level of Care Code ED Licensed Nurse Practitioner for [employer] Fwd Exam Comprehensive
[2022-05-15 02:00] VITALS: PULSE 69; RESP 14; O2SAT 98
[2022-05-15 04:00] VITALS: PULSE 72; RESP 15; O2SAT 97
[2022-05-15 04:15] VITALS: PULSE 68; RESP 14; O2SAT 98
--- NOTE | 2022-05-15 12:24 | PC.NURSE ---
Pt has a sitter, pt has slept all morning, did not eat breakfast
[2022-05-15 14:25] VITALS: BP 128/71; PULSE 88; RESP 16; O2SAT 99
== END 2022-05-15 14:20 ==
PROVIDERS: Emergency Medicine; Emergency Provider Family Medicine
DX: R45.851 Suicidal ideations (principal); F32.A Depression, unspecified; F15.10 Other stimulant abuse, uncomplicated; F60.89 Other specific personality disorders
CPT/HCPCS: 80053; 80306; 80307; 81001; 81003; 84443; 85025; 87426; 93005; 99284

== ENCOUNTER 2022-11-22 03:59 | Inpatient (IN) | payer OTHER, SELFPAY ==
--- NOTE | 2022-11-22 04:00 | W.ED.PSYCHS ---
HPI - Psych General: Chief Complaint: Psychiatric Symptoms Stated Complaint: MHE Time Seen by Provider: 11/22/22 04:00 History of Present Illness: 27-year-old gentleman with reported history of multiple psychiatric diagnoses not currently on medications presenting to the emergency department for worsening psychiatric symptoms. He notes increased social stressors primarily conflict with his mother. He notes suicidal thoughts, increased anxiety, depression, racing thoughts, generalized malaise. Intensity is moderate to severe. Course has worsened. No other specific changes in health, exacerbating, or alleviating factors identified. Duration: getting worse History of same: Yes Exacerbating factors: other Context: not taking psychiatric medications and significant life stressor Associated psychiatric symptoms: depression, suicidal ideation and racing thoughts Review of Systems General: Reports: 10 or more systems reviewed and unremarkable except in HPI and below PFSH ED PFSH: Medical History Anxiety Asthma Depression Methamphetamine use PTSD (post-traumatic stress disorder) Surgical History No pertinent past surgical history Social History Smoking and tobacco status: current some day smoker Physical Exam Const: COMMON NORMALS: alert GENERAL APPEARANCE: cooperative and well developed HENMT: COMMON NORMALS: normocephalic and atraumatic HEAD & SCALP: normocephalic and atraumatic Eye: COMMON NORMALS: conjunctivae normal CONJUNCTIVA: Yes conjunctivae normal SCLERA: sclerae normal Neck/C-Spine: COMMON NORMALS: supple GENERAL: Yes trachea midline Resp: COMMON NORMALS: normal respiratory effort EFFORT & INSPECTION: Yes able to speak in complete sentences Cardio: COMMON NORMALS: regular rate and regular rhythm RATE: regular rate RHYTHM: regular rhythm GI: COMMON NORMALS: Soft to palpation PALPATION: Yes Soft to palpation and No Tenderness to palpation present (GI) Extremity: GENERAL: Yes normal exam except as noted and No edema Neuro: COMMON NORMALS: moves all extremities SENSORIUM/ORIENTATION: Yes alert and No Orientation impaired Psych: COMMON NORMALS: mental status grossly normal and Normal thought process present THOUGHT PROCESS: Normal thought process present Course Vital Signs: Vital signs: Vital Signs Temperature 98.0 F 11/26/22 18:07 Pulse Rate 99 11/26/22 18:07 Respiratory Rate 22 H 11/26/22 18:07 Blood Pressure 131/85 11/26/22 18:07 Pulse Oximetry 95 11/26/22 18:07 Oxygen Delivery Me thod Room Air 11/26/22 12:53 MDM - Psych Medical Decision Making 27-year-old gentleman with psychiatric history not on medications presenting for suicidal ideation and worsening mental state. Labs demonstrate no significant hematologic or metabolic abnormality with the exception of mild hemoconcentration and transaminitis of uncertain etiology. No abdominal tenderness or concerns on exam/history. TSH is elevated with normal free T4. Urine drug screen and toxic ingestions are negative with the exception of positive THC. Urinalysis is normal. COVID negative. Given physical exam and clinical history provided there is no indication for imaging at this time. Based on ED evaluation at this point there is no obvious condition that would preclude the patient from inpatient management of psychiatric concerns/symptoms. The results of ED evaluation were discussed with the patient including plan for admission due to requirement for level of care not available if discharged to prevent significant worsening/deterioration. Patient agreeable with plan. Discussed with psychiatry service who was agreeable to admit patient. Medical Records I reviewed the patient's medical records. Lab Data I reviewed the patient's lab results. 11/22/22 05:06 11/22/22 05:06 Laboratory Results WBC 12.6 10^3/uL (4.0-10.0) H 11/22/22 05:06 RBC 5.51 10^6/uL (4.1-5.3) H 11/22/22 05:06 Hgb 15.9 g/dL (11.7-16.6) 11/22/22 05:06 Hct 48.2 % (42.0-52.0) 11/22/22 05:06 MCV 87.5 fl (80-94) 11/22/22 05:06 MCH 28.9 pg (28.0-34.0) 11/22/22 05:06 MCHC 33.0 g/dL (30.0-36.0) 11/22/22 05:06 RDW 12.7 % (12.1-15.1) 11/22/22 05:06 Plt Count 253 10^3/cmm (130-400) 11/22/22 05:06 MPV 9.3 fL (7.4-10.4) 11/22/22 05:06 Neut % (Auto) 51.3 % 11/22/22 05:06 Lymph % (Auto) 31.7 % 11/22/22 05:06 Maury % (Auto) 12.1 % 11/22/22 05:06 Eos % (Auto) 3.8 % 11/22/22 05:06 Baso % (Auto) 0.7 % 11/22/22 05:06 Neut # (Auto) 6.44 10^3/uL (1.8-7.7) 11/22/22 05:06 Lymph # (Auto) 4.0 10^3/uL (0.8-4.8) 11/22/22 05:06 Maury # (Auto) 1.5 10^3/uL (0.2-0.9) H 11/22/22 05:06 Eos # (Auto) 0.5 10^3/uL (0.0-0.8) 11/22/22 05:06 Baso # (Auto) 0.1 10^3/uL (0.0-0.1) 11/22/22 05:06 Nucleated RBC % (auto) 0 % 11/22/22 05:06 Nucleated RBCs # 0.0 /100WBC 11/22/22 05:06 Sodium 137 mmol/L (136-145) 11/22/22 05:06 Potassium 5.0 mmol/L (3.5-5.1) 11/22/22 05:06 Chloride 100 mmol/L (98-107) 11/22/22 05:06 Carbon Dioxide 28 mmol/L (22-29) 11/22/22 05:06 Anion Gap 14.0 (5-19) 11/22/22 05:06 BUN 21 mg/dL (6-20) H 11/22/22 05:06 Creatinine 0.9 mg/dL (0.7-1.2) 11/22/22 05:06 GFR Calculation 100.5 mL/min (90-130) 11/22/22 05:06 Glucose 94 mg/dL (65-115) 11/22/22 05:06 Calculated Osmolality 287 mOsm/kg (285-295) 11/22/22 05:06 Calcium 9.6 mg/dL (8.5-10.5) 11/22/22 05:06 Total Bilirubin 0.3 mg/dL (0.15-1.2) 11/22/22 05:06 AST 54 U/L (0-40) H 11/22/22 05:06 ALT 94 U/L (0-41) H 11/22/22 05:06 Alkaline Phosphatase 82 U/L (40-130) 11/22/22 05:06 Total Protein 7.5 g/dL (6.6-8.7) 11/22/22 05:06 Albumin 4.2 g/dL (3.5-5.2) 11/22/22 05:06 Globulin 3.3 g/dL (1.3-4.6) 11/22/22 05:06 TSH 4.37 uIU/mL (0.27-4.20) H 11/22/22 05:06 Free T4 1.04 ng/dL (0.82-1.77) 11/22/22 05:06 Salicylates < 0.3 mg/dL (3-10) L 11/22/22 05:06 Urine Opiates Screen Negative ng/mL (Negative) 11/22/22 05:09 Acetaminophen < 5.0 ug/mL (10-30) L 11/22/22 05:06 Ur Barbiturates Screen Negative ng/mL (Negative) 11/22/22 05:09 Ur Phencyclidine Scrn Negative ng/mL (Negative) 11/22/22 05:09 Ur Amphetamines Screen Negative ng/mL (Negative) 11/22/22 05:09 U Benzodiazepines Scrn Negative ng/mL (Negative) 11/22/22 05:09 Urine Cocaine Screen Negative ng/mL (Negative) 11/22/22 05:09 U Marijuana (THC) Screen Positive ng/mL (Negative) H 11/22/22 05:09 Ethyl Alcohol < 10 mg/dL (0-10) 11/22/22 05:06 Hepatitis A IgM Ab Non-reactive (Nonreactive) 11/22/22 05:06 Hep Bs Antigen Non-reactive (Nonreactive) 11/22/22 05:06 Hep B Core IgM Ab Non-reactive (Nonreactive) 11/22/22 05:06 Hepatitis C Antibody Reactive (Nonreactive) H 11/22/22 05:06 Discharge Plan Discharge Patient Disposition: Admitted As Inpatient Admit Provider: Delfino Ziegler Clinical Impression: Anxiety, Suicidal ideation, Depression Condition: Stable Discharge Diet: Usual diet Discharge Activity: Resume usual activity Coding Level of Care Code ED Campaign Specialist for Geovanny Farley
[2022-11-22 04:05] VITALS: BP 127/85; PULSE 95; RESP 16; TEMP 36.8; O2SAT 96; BMI 34.7
[2022-11-22] MEDS: LORazepam 0.5 mg Tablet PO (04:44)
[2022-11-22 04:49] VITALS: PULSE 92; O2SAT 98
[2022-11-22] MEDS: albuterol 8 gm MDI 2 PUFF INHALATION (04:49)
[2022-11-22 05:16] LABS: Basophils # 0.1 10^3/uL (0.0-0.1); Basophils % 0.7 %; Eosinophils # 0.5 10^3/uL (0.0-0.8); Eosinophils % 3.8 %; Hematocrit 48.2 % (42.0-52.0); Hemoglobin 15.9 g/dL (11.7-16.6); Lymphocytes % 31.7 %; Mean Corpuscular Hemoglobin 28.9 pg (28.0-34.0); Mean Corpuscular Volume 87.5 fl (80-94); Mean Platelet Volume 9.3 fL (7.4-10.4); Monocytes # 1.5 10^3/uL (0.2-0.9); Monocytes % 12.1 %; Neutrophils # 6.44 10^3/uL (1.8-7.7); Neutrophils % 51.3 %; Nucleated Red Blood Cells % 0 %; Platelet Count 253 10^3/cmm (130-400); Red Blood Count 5.51 10^6/uL (4.1-5.3); Red Cell Distribution Width 12.7 % (12.1-15.1); White Blood Count 12.6 10^3/uL (4.0-10.0)
[2022-11-22 05:38] LABS: Amphetamines Screen Urine Negative (Negative); Barbiturates Screen Urine Negative (Negative); Benzodiazepines Screen Urine Negative (Negative); Cocaine Screen Urine Negative (Negative); Opiate Screen Urine Negative (Negative); PCP Screen Urine Negative (Negative); THC Screen Urine Positive (Negative)
[2022-11-22 05:48] LABS: Alanine Aminotransferase 94 U/L (0-41); Albumin Level 4.2 g/dL (3.5-5.2); Alkaline Phosphatase 82 U/L (40-130); Aspartate Amino Transferase 54 U/L (0-40); Blood Urea Nitrogen 21 mg/dL (6-20); Calcium 9.6 mg/dL (8.5-10.5); Carbon Dioxide 28 mmol/L (22-29); Chloride 100 mmol/L (98-107); Globulin 3.3 g/dL (1.3-4.6); Glomerular Filtration Rate 100.5 mL/min (90-130); Glucose 94 mg/dL (65-115); Osmolality Calculated 287 mOsm/kg (285-295); Sodium 137 mmol/L (136-145); Thyroid Stimulating Hormone 4.37 uIU/mL (0.27-4.20); Total Bilirubin 0.3 mg/dL (0.15-1.2); Total Protein 7.5 g/dL (6.6-8.7)
[2022-11-22 05:49] LABS: Acetaminophen < 5.0 ug/mL (10-30); Alcohol Level < 10 mg/dL (0-10); Salicylate < 0.3 mg/dL (3-10)
[2022-11-22 06:22] LABS: Free T4 Free Thyroxine 1.04 ng/dL (0.82-1.77)
[2022-11-22 06:26] VITALS: BP 139/102; PULSE 95; RESP 20; TEMP 36.9; O2SAT 96
[2022-11-22 06:27] LABS: Hepatitis A Antibody IgM Non-Reactive (Nonreactive); Hepatitis B Core IgM Non-Reactive (Nonreactive); Hepatitis B Surface Antigen Non-Reactive (Nonreactive); Hepatitis C Virus Antibody Reactive (Nonreactive)
--- NOTE | 2022-11-22 07:28 | PC.NURSE ---
Pt admitted from [facility] for SI, accompanied by security and RN. Pt is disheveled in appearance, and highly anxious and agitated. Flighty and disorganized thought process, excessive and rambled speech. States he came in today because of a series of dx that dance around each other; SI, Paranoid Schizophrenia, and anxiety . Pt states that he walked part of the way here and was picked up by a calabrese, and he was thirsty so he drank half a beer the transporter driver had in the vehicle. Pt states that he does not like large crowds or to be cornered, makes him anxious and angry. Denies being combative with others, just punches and headbutts the wall . Pt does state that he is currently homeless and needs to figure out where he will discharge home to. Pt shown to his room and provided snacks per his request.
[2022-11-22] MEDS: hyDROXYzine 25 mg Capsule 50 MG PO ×2 (08:12→20:06)
--- NOTE | 2022-11-22 09:57 | PC.OT ---
OT EVALUATION ATTEMPTED; PATIENT BELLIGERENT AND YELLING AT THERAPIST AND OT STUDENT; I WAS PROMISED I COULD SLEEP AND NOT BE DISTURBED! -THIS THERAPIST DID CHECK IN WITH NURSING PRIOR TO SEEING PATIENT AND WAS TOLD I COULD EVALUATE THE PATIENT THIS MORNING.
--- NOTE | 2022-11-22 10:49 | PC.NURSE ---
PT BECAME IRRITABLE ABOUT STAFF LETTING PEOPLE WAKE HIM UP. PT STATED I WAS TOLD THAT I COULD GO SLEEP, I WAS TOLD 3 TIMES THAT I WOULD BE ABLE TO SLEEP AND THAT HAS NOT HAPPENED. I HAVE BEEN WOKE UP 3 TIMES WHY WOULD I WANT TO BE HERE WHEN THE STAFF LIES TO ME. PT WAS EDUCATED THAT WHILE WE CAN ATTEMPT TO LET PT SLEEP SOME OTHER STAFF MAY COME INTO HIS ROOM THAT IS OUTSIDE OF OUR CONTROL. PT REPEATED PREVIOUS STATEMENT. PT ALSO STATED IM DONE I WANT TO LEAVE, LET ME SIGN PAPERS I WANT TO LEAVE AMA. IM NOT GOING TO BE HERE IF IM GOING TO KEEP BEING LIED TO. WAS INFORMED OF PT STATEMENT. PT WAS INFORMED THAT PT WILL NEEDED TO BE SEEN BY DOCTOR AND THAT IF PT IS STILL PUSHING TO LEAVE PT WILL HAVE TO BE PLACED ON A HOLD DUE TO SUIDICAL STATEMENTS. PT THEN STATED TO THIS NURSE IM PUSHING TO GET OUT OF HERE BECAUSE I WANT TO GO SEE MY SONS GRAVE AND GO TO MY AUNT'S THAT IS ALL I WANT NOW. I CAME HERE MYSELF FOR HELP AND NOW I WANT TO LEAVE. PT WAS REEDUCATED AGAIN ON THE SITUATION. PT THEN STATED THEN I WILL JUST BE A WASTE OF YOUR TIME. I WONT TALK AND ILL JUST SIT HERE. IF YOU WANT TO WASTE MONEY ON ME FINE. THIS RN BEGAN EXPLAINING HOW WE ARE HERE TO HELP AND PT STOOD UP FRUSTRATED STATING ENOUGH WITH THE THERAPEUTIC TALK, I WANT SOMEONE TO BE REAL WITH ME FOR ONCE, JUST BE REAL WITH ME. THIS RN THEN STATED OKAY I WILL BE REAL WITH YOU, I WANT YOU TO BE SAFE, WE WANT TO HELP YOU, PT THEN STATED HELP ME, YOU DONT EVEN KNOW WHAT IS WRONG WITH ME. THIS RN STATED I DO NOT KNOW EVERYTHING ABOUT YOU, BUT I KNOW YOU CAME HERE FOR HELP, I KNOW THAT YOU HAVE BEEN HAVING THOUGHTS OF HURTING YOURSELF, AND I KNOW THAT OUR GOAL IS TO WORK ON GETTING YOU TO FEEL BETTER. PT STATED I WALKED 50 MILES TO SEE MY SONS GRAVE AND TO TALK TO MY AUNT WHO DOESNT WANT ANYTHING TO DO WITH ME. MY MOTHER KEEPS PUSHING ME AWAY AND SHE IS ONE OF THE ONLY PEOPLE I CARE ABOUT AND SHE WANTS NOTHING TO DO WITH ME. I TOLD HER WHEN I WAS 17 THAT SHE NEEDED TO GET LEGAL GUARDIANSHIP OF ME BECAUSE IM NOT RIGHT. ALL SHE WOULD SAY TO ME IS 'YOU GOT THIS, YOU CAN DO IT.' I DONT KNOW IF ITS TOUGH LOVE OR WHAT BUT I NEED TO FEEL LIKE THEY CARE ABOUT ME. PT BECAME TEARFUL DURING THIS STATEMENT. THIS RN SPOKE WITH PT STATING THESE ARE THINGS WE CAN WORK ON HERE, THESE ARE SOME OF THE REASONS WE HAVE SOCIAL WORKERS BECAUSE THEY HAVE ACCESS TO MULTIPLE RESOURCES. PT THEN LOOKED AT THIS NURSE AND STATED THANK YOU FOR NOT LETTING ME LEAVE, I NEED HELP, PLEASE DO NOT LET ME LEAVE PLEASE. THIS RN STATED TO PT THAT HIS SAFETY IS OUR PRIORITY. PT ALSO STATED YOUR STAFF SHOULDNT LAUGH OR SCOFF AT PT THAT JUST ISNT RIGHT. IT WASNT YOU BUT THEY SHOULD BE FIRED OR TRANSFERRED TO ANOTHER FLOOR. PT WAS INFORMED THAT WHILE OUR STAFF MEMBER MAY HAVE BEEN LAUGHING THAT IT WAS NOT DIRECTED AT HIM OR ANY OF THE OTHER PTS. PT THEN STATED TO NURSE WELL I HAVE A HISTORY OF PARANOID SCHIZOPHRENIA AND I FEEL LIKE EVERYTHING IS DIRECTED AT ME. PT ALSO APOLOGIZED. THIS RN STATED THAT SINCE HE HAS BECOME MORE COMFORTABLE SPEAKING WITH ME THAT HE CAN COME TO ME WITH HIS NEEDS, THIS NURSE ALSO EXPLAINED THAT I WILL BE HERE TOMORROW AND I WILL TALK TO HIM ABOUT THE NURSES TAKING OVER FOR ME TO GIVE HIM SOME COMFORT. PT THEN WAS WALKED TO HIS ROOM WHERE HE DECIDED TO LAY BACK DOWN.
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
[2022-11-22 14:00] VITALS: RESP 16
[2022-11-22 15:15] VITALS: BP 132/69; PULSE 87; RESP 16; TEMP 36.9; O2SAT 93
--- NOTE | 2022-11-22 19:27 | PC.NURSE ---
Physician evaluated pt in room. This nurse instructed to give Invega 6 mg now and then po qd. New orders received and noted.
[2022-11-22] MEDS: paliperidone ER 6 mg Tablet PO (19:35)
[2022-11-22] MEDS: OLANZapine 5 mg ODT PO (20:06)
[2022-11-22] MEDS: trazodone 50 mg Tablet PO (20:06)
[2022-11-22] MEDS: haloperidol 5 mg Tablet PO (20:06)
[2022-11-22 21:39] VITALS: BP 116/89; PULSE 96; RESP 18; TEMP 37; O2SAT 96
[2022-11-23 06:00] VITALS: BP 108/66; PULSE 92; RESP 18; TEMP 36.8; O2SAT 98
--- NOTE | 2022-11-23 08:41 | PC.NURSE ---
PT IS CURRENTLY EATING IN THE DAYROOM. PT CURRENTLY DENIES SI/HI/AH/VH. PT ENDORSES SOME ANXIETY ABOUT OTHER PTS BUT STATES THAT IT IS MANAGEABLE. THIS RN EDUCATED PT THE IMPORTANCE COMING TO NURSES IF HE FEELS LIKE HE NEEDS SOMETHING. PT VERBALIZED UNDERSTANDING.
[2022-11-23] MEDS: paliperidone ER 6 mg Tablet PO (09:06)
[2022-11-23 14:00] VITALS: BP 108/69; PULSE 88; RESP 20; TEMP 36.8; O2SAT 93
[2022-11-23] MEDS: diphenhydrAMINE 50 mg Capsule PO (14:10)
[2022-11-23] MEDS: LORazepam 2 mg Tablet PO (14:10)
[2022-11-23] MEDS: haloperidol 5 mg Tablet PO (14:10)
--- NOTE | 2022-11-23 16:38 | P.NPUPN_ITS ---
Subjective NPU Subjective: Patient presented today reporting that he is feeling better than yesterday and not having extreme agitation. He denied any side effects from initiating the Invega. We continue to discuss a long-acting injectable and getting him reconnected with services. He reports that he is sleeping a little better. Mental Status Exam MSE Comments: This is an obese white male in hospital scrubs with limited grooming and eye contact. No abnormal movements except for mild psychomotor agitation. More education and outreach coordinator perative with exam in mild to moderate distress during the observation. Speech was normal rate and volume. Mood described as a little better, affect congruent and less irritable. Thought process organized. Thought content: Patient endorsed suicidal ideation with no reports of homicidal ideation, there are no delusions reported but some concern for grandiose or paranoid thinking noted, he did not report any auditory or visual hallucinations. Attention and concentration appeared improving and memory was mostly reliable but none were formally tested. He is alert and oriented x3. Insight and judgment are impaired, impulse control is impaired. Vitals/I&O/Wt Last Vital Signs Temp 98.3 F 11/23/22 14:00 Pulse 88 11/23/22 14:00 Resp 20 H 11/23/22 14:00 BP 108/69 11/23/22 14:00 Pulse Ox 93 11/23/22 14:00 O2 Del Method Room Air 11/23/22 14:00 Data NPU 11/22/22 05:06 11/22/22 05:06 A&P Assessment and plan (1) Suicidal ideation: (2) Cluster B personality disorder in adult: (3) Cannabis use disorder, moderate, in early remission, in controlled envi ronment, dependence: (4) PTSD (post-traumatic stress disorder): (5) Anxiety: (6) Major depression: Plan This is a 27-year-old white male with a long history of trauma, family disruption, inpatient hospitalizations and active addiction who presents with significant mood dysregulation as he has in the past but without amphetamines in his drug screen initially trying to leave AMA but now reporting he can stay but reminiscent of his significant volatility during his last hospitalization. 1. Continue current medication. Started Invega 6 mg p.o. daily with plan to hopefully switch to the long-acting injectable. 2. Continue every 15 minute checks for safety. 3. Encourage individual, group and milieu therapy. 4. Encourage sober living treatment after discharge at the highest level of care to which he is willing to commit. Involuntary Hold Information 96 Hour Hold: 96 Hour Involuntary Admission: No Attestations NPU Medical Necessity Statement*: Inpatient hospitalization is medically necessary and the clinically appropriate intervention at this time. We will monitor medications and make changes as indicated. Likely length of stay 3-5 days. Coding Level of Care Code Acute Code for [facility] Fwd Diagnoses Suicidal ideation R45.851 Cluster B personality disorder in adult F60.9 Cannabis use disorder, moderate, in early remission, in controlled environment, dependence F12.21 PTSD (post-traumatic stress disorder) F43.10 Anxiety F41.9 Major depression F32.9
[2022-11-23 22:23] VITALS: BP 103/65; PULSE 97; RESP 15; TEMP 36.7; O2SAT 97
[2022-11-23 22:49] LABS: HEP C RNA Viral Load Quant 267000 IU/mL (NOT DETECTED); HEP C RNA Viral Load Quant 5.43 Log IU/mL (NOT DETECTED)
[2022-11-24 06:09] VITALS: BP 118/78; PULSE 89; RESP 18; TEMP 36.6; O2SAT 96
[2022-11-24] MEDS: paliperidone ER 6 mg Tablet PO (08:33)
[2022-11-24 14:00] VITALS: BP 126/87; PULSE 92; RESP 18; TEMP 36.8; O2SAT 96
--- NOTE | 2022-11-24 17:49 | W.PM.NPUPNS ---
Subjective NPU Subjective: Patient presented today reporting that his treatment here has been less than fair and being very paranoid about any eye movement or statement that anyone was making. We discussed the fact that he was not safe to discharge when he asked to be discharged and an affidavit was put in his chart. He did later come and apologize but continues to be really animated. Mental Status Exam MSE Comments: This is an obese white male in hospital scrubs with limited grooming and eye contact. No abnormal movements except for mild psychomotor agitation. More cooperative with exam in mild to moderate distress during the observation. Speech was normal rate and volume. Mood described as upset, affect congruent and irritable. Thought process organized. Thought content: Patient endorsed suicidal ideation with no reports of homicidal ideation, there are no delusions reported but some concern for grandiose or paranoid thinking noted, he did not report any auditory or visual hallucinations. Attention and concentration appeared improving and memory was mostly reliable but none were formally tested. He is alert and oriented x3. Insight and judgment are impaired, impulse control is impaired. Vitals/I&O/Wt Last Vital Signs Temp 98.2 F 11/24/22 20:17 Pulse 115 H 11/24/22 20:17 Resp 13 11/24/22 20:17 BP 126/81 11/24/22 20:17 Pulse Ox 95 11/24/22 20:17 O2 Del Method Room Air 11/24/22 20:17 Data NPU 11/22/22 05:06 11/22/22 05:06 A&P Assessment and plan (1) Suicidal ideation: (2) Cluster B personality disorder in adult: (3) Cannabis use disorder, moderate, in early remission, in controlled environment, dependence: (4) PTSD (post-traumatic stress disorder): (5) Anxiety: (6) Major depression: Plan This is a 27-year-old white male with a long history of trauma, family disruption, inpatient hospitalizations and active addiction who presents with significant mood dysregulation as he has in the past but without amphetamines in his drug screen initially trying to leave AMA but now reporting he can stay but reminiscent of his significant volatility during his last hospitalization. 1. Continue current medication. Started Invega 6 mg p.o. daily with plan to hopefully switch to the long-acting injectable. 2. Continue every 15 minute checks for safety. 3. Encourage individual, group and milieu therapy. 4. Encourage sober living treatment after discharge at the highest level of care to which he is willing to commit. Involuntary Hold Information 96 Hour Hold: 96 Hour Involuntary Admission: No Attestations NPU Medical Necessity Statement*: Inpatient hospitalization is medically necessary and the clinically appropriate intervention at this time. We will monitor medications and make changes as indicated. Likely length of stay 3-5 days. Coding Level of Care Code Acute Code for [facility] Fwd Diagnoses Suicidal ideation R45.851 Cluster B personality disorder in adult F60.9 Cannabis use disorder, moderate, in early remission, in controlled environment, dependence F12.21 PTSD (post-traumatic stress disorder) F43.10 Anxiety F41.9 Major depression F32.9
[2022-11-24 20:17] VITALS: BP 126/81; PULSE 115; RESP 13; TEMP 36.8; O2SAT 95
[2022-11-24] MEDS: trazodone 50 mg Tablet PO (20:46)
[2022-11-24] MEDS: quetiapine 100 mg Tablet PO (20:46)
[2022-11-25 06:33] VITALS: RESP 15
--- NOTE | 2022-11-25 07:12 | P.NPUPN_ITS ---
Subjective NPU Subjective: Patient presents today feeling that he is doing okay. He reports he has calmed down from yesterday. He reports he is tolerating medication well and denies any side effects. We discussed Dr. Storm take over tomorrow and likely discharge at the beginning of the week Mental Status Exam MSE Comments: This is an obese white male in hospital scrubs with limited grooming and eye contact. No abnormal movements except for mild psychomotor agitation. More cooperative with exam in mild distress. Speech was normal rate and volume. Mood described as better , affect congruent. Thought process organized. Thought content: Patient denied suicidal ideation with no reports of homicidal ideation, there are no delusions reported but some concern for grandiose or paranoid thinking noted, he did not report any auditory or visual hallucinations. Attention and concentration appeared improving and memory was mostly reliable but none were formally tested. He is alert and oriented x3. Insight and judgment are improving, impulse control is limited but improving. Vitals/I&O/Wt Last Vital Signs Temp 97.9 F 11/25/22 21:23 Pulse 96 11/25/22 21:23 Resp 18 11/25/22 21:23 BP 112/72 11/25/22 21:23 Pulse Ox 96 11/25/22 21:23 O2 Del Method Room Air 11/24/22 20:17 Weight last 48 hrs Weight 104.326 kg Data NPU 11/22/22 05:06 11/22/22 05:06 A&P Assessment and plan (1) Suicidal ideation: (2) Cluster B personality disorder in adult: (3) Cannabis use disorder, moderate, in early remission, in controlled environment, dependence: (4) PTSD (post-traumatic stress disorder): (5) Anxiety: (6) Major depression: Plan This is a 27-year-old white male with a long history of trauma, family disruption, inpatient hospitalizations and active addiction who presents with significant mood dysregulation as he has in the past but without amphetamines in his drug screen initially trying to leave AMA but now reporting he can stay but reminiscent of his significant volatility during his last hospitalization. 1. Continue current medication. Started Invega 6 mg p.o. daily with plan to hopefully switch to the long-acting injectable. Restarted Seroquel 100 mg p.o. nightly. 2. Continue every 15 minute checks for safety. 3. Encourage individual, group and milieu therapy. 4. Encourage sober living treatment after discharge at the highest level of care to which he is willing to commit. Involuntary Hold Information 96 Hour Hold: 96 Hour Involuntary Admission: No Attestations NPU Medical Necessity Statement*: Inpatient hospitalization is medically necessary and the clinically appropriate intervention at this time. We will monitor medications and make changes as indicated. Likely length of stay 2-4 days. Coding Level of Care Code Acute Code for [facility] Fwd Diagnoses Suicidal ideation R45.851 Cluster B personality disorder in adult F60.9 Cannabis use disorder, moderate, in early remission, in controlled environment, dependence F12.21 PTSD (post-traumatic stress disorder) F43.10 Anxiety F41.9 Major depression F32.9
[2022-11-25] MEDS: quetiapine 25 mg Tablet 50 MG PO (10:21)
[2022-11-25] MEDS: paliperidone ER 6 mg Tablet PO (10:21)
[2022-11-25 14:00] VITALS: BP 109/67; PULSE 81; RESP 16; TEMP 36.7; O2SAT 97
--- NOTE | 2022-11-25 17:33 | PC.NURSE ---
Pt refused to take his 1800 dose of Quetiapine 50 mg, pt stated that he didn't want to be out of it, also stated that he voided on himself yesterday and feels this medication is what caused it.
[2022-11-25] MEDS: nicotine 4 mg lozenge MUCOUS MEM (18:01)
[2022-11-25] MEDS: quetiapine 100 mg Tablet PO (20:29)
[2022-11-25 21:23] VITALS: BP 112/72; PULSE 96; RESP 18; TEMP 36.6; O2SAT 96
[2022-11-25] MEDS: LORazepam 2 mg Tablet PO (22:47)
--- NOTE | 2022-11-25 22:59 | PC.NURSE ---
Behavior note Nurse rounded in patient room at 2215 and asked patient if she could listen to his lungs, and heart sounds. The patient got out of bed and began screaming at the nurse about his sleep being interrupted. The patient was very aggressive, walking very close to the nurse screaming Fuck you, Fuck this place, I can never get sleep, get the fuck out The nurse quickly apologized and left the room. The patient followed the nurse into the hallway to continue screaming and using profanity. The patient followed the nurse to the nurses station and began yelling at the other staff within the nurses station. The patient jumped up and slapped the door frame of double doors by the nurses station. He continued pacing the reynolds in front of the nurses station yalling about the CNAs taking his vitals and the nurse coming into his room, he was screaming his meds make him too tired and he cant get sleep here. Charge nurse attempted to calm and redirect patient. Patient continued yelling behavior, Charge nurse requested this nurse get a PRN medication for anxiety. PRN Ativan 2mg PO administered, Patient became tearful and apologetic to staff.
[2022-11-26 06:00] VITALS: RESP 18
[2022-11-26] MEDS: quetiapine 25 mg Tablet 50 MG PO (12:15)
[2022-11-26] MEDS: paliperidone ER 6 mg Tablet PO (12:15)
[2022-11-26 12:53] VITALS: BP 131/85; PULSE 99; RESP 22; TEMP 36.7; O2SAT 95
--- NOTE | 2022-11-26 13:29 | W.PM.NPUPNS ---
Subjective NPU Subjective: Patient is a 27-year-old white male with a history of cannabis use methamphetamine use along with a history of depression admitted with suicidal ideation. Patient states that he has been in the hospital for over 5 days and stated that he was ready to return home. He stated that he felt better. He continued to minimize the reasons for being placed here. He reported no side effects from his Invega oral. He had reported that he had felt like the Seroquel was too much for him and stated that he took this medication to help him with symptoms suggestive of PTSD. The patient had reported that he had been noncompliant before in the past with his medication. He stated that he would be returning to his mother's house. Mental Status Exam MSE Comments: This is an obese white male in hospital scrubs with limited grooming and eye contact. No abnormal movements except for mild psychomotor agitation. He was minimally cooperative during the interview. Speech was normal in rate and volume and prosody. Mood described as better, his affect appeared brighter. Thought process organized. Thought content: Patient denied suicidal ideation with no reports of homicidal ideation, there are no delusions reported but some evidence of grandiosity noted. He did not report any auditory or visual hallucinations. Attention and concentration appeared improving and memory was mostly reliable but none were formally tested. He is alert and oriented x3. Insight and judgment are improving, impulse control is limited but improving. Vitals/I&O/Wt Last Vital Signs Temp 98.0 F 11/26/22 12:53 Pulse 99 11/26/22 12:53 Resp 22 H 11/26/22 12:53 BP 131/85 11/26/22 12:53 Pulse Ox 95 11/26/22 12:53 O2 Del Method Room Air 11/26/22 12:53 Weight last 48 hrs Weight 104.326 kg Data NPU 11/22/22 05:06 11/22/22 05:06 A&P Assessment and plan (1) Suicidal ideation: (2) Cluster B personality disorder in adult: (3) Cannabis use disorder, moderate, in early remission, in controlled environment, dependence: (4) PTSD (post-traumatic stress disorder): (5) Anxiety: (6) Major depression: Plan This is a 27-year-old white male with a long history of trauma, family disruption, inpatient hospitalizations and active addiction who presents with significant mood dysregulation as he has in the past but without amphetamines in his drug screen initially trying to leave AMA but now reporting he can stay but reminiscent of his significant volatility during his last hospitalization. 1. Continue current medication. Started Invega 6 mg p.o. daily with plan to hopefully switch to the long-acting injectable. Continue seroquel 50mg bid, 100mg po qhs. 2. Continue every 15 minute checks for safety. 3. Encourage individual, group and milieu therapy. 4. Encourage sober living treatment after discharge at the highest level of care to which he is willing to commit. Involuntary Hold Information 96 Hour Hold: 96 Hour Involuntary Admission: No Attestations NPU Medical Necessity Statement*: Inpatient hospitalization is medically necessary and the clinically appropriate intervention at this time. We will monitor medications and make changes as indicated. His likely length of stay 1-2 days. Coding Level of Care Code Acute Code for [facility] Fwd Diagnoses Suicidal ideation R45.851 Cluster B personality disorder in adult F60.9 Cannabis use disorder, moderate, in early remission, in controlled environment, dependence F12.21 PTSD (post-traumatic stress disorder) F43.10 Anxiety F41.9 Major depression F32.9
--- NOTE | 2022-11-26 17:52 | PC.NURSE ---
Patient refused seroquel, stating he doesn't believe he needs to take it. RN explained to patient the benefits of the medication, but he still refused. Doctor notified.
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
[2022-11-26 18:07] VITALS: BP 131/85; PULSE 99; RESP 22; TEMP 36.7; O2SAT 95
== END 2022-11-26 18:34 | disposition home or self-care (01) | DRG 880 ==
LOC: ER 05:41 → NP 05:49
PROVIDERS: Admitting Provider Psychiatry & Neurology Psychiatry; Emergency Provider Emergency Medicine; Visit Provider Psychiatry & Neurology Psychiatry
DX: F41.9 Anxiety disorder, unspecified (principal); R45.851 Suicidal ideations; F32.A Depression, unspecified; Z63.9 Problem related to primary support group, unspecified; Z62.820 Parent-biological child conflict; F60.9 Personality disorder, unspecified; F12.20 Cannabis dependence, uncomplicated; F43.10 Post-traumatic stress disorder, unspecified; R45.1 Restlessness and agitation
CPT/HCPCS: 80053; 80074; 80306; 80307; 84439; 84443; 85025; 87522; 94640; 97165; 99238; 99285; J3535; Q0163

== ENCOUNTER 2022-11-30 07:54 | Emergency (ER) | payer OTHER, SELFPAY ==
[2022-11-30 08:08] VITALS: BP 131/93; PULSE 87; RESP 14; TEMP 36.7; O2SAT 98; BMI 35.4
[2022-11-30 08:11] VITALS: BMI 34.0
[2022-11-30 08:18] VITALS: BP 131/93; PULSE 100; RESP 18; TEMP 36.7; O2SAT 100
--- NOTE | 2022-11-30 08:33 | W.ED.PSYCHS ---
Documented by User: LUIS Ríos 11/30/22 16:22 HPI - Psych General: Chief Complaint: Psychiatric Symptoms Stated Complaint: MHE Time Seen by Provider: 11/30/22 07:58 History of Present Illness: Patient is a 27-year-old male who comes to the ED for mental health evaluation. Patient states he has a history of methamphetamine abuse, depression, PTSD and borderline personality disorder. Patient says he is currently not taking any of his medications and has been off them for several months. Patient endorses having suicidal thoughts in the past but says he is not having any current suicidal thoughts today. Patient denies any suicidal plan. patient told nurse that I just want to be done with life, but I do not want to kill myself or anyone. Patient says he is very stressed out and states that his mother treats him like crap and stresses him out. Patient said his son back in 2016 and he has been having troubles dealing with that. Patient endorses hallucinations and says he sees shadow people, ants crawling on him and he also hears voices. Patient states he wants to get stabilized and put back on some medications that can help. Denies any HI. Associated symptoms: Reports auditory hallucinations, visual hallucinations, depression and suicidal ideation; Deny homicidal ideation Review of Systems Const: Denies: fever(s), chills or fatigue Eyes: Denies: change in vision or eye discomfort ENMT: Denies: throat pain, odynophagia, nasal discharge or nasal congestion Card: Denies: chest pain, palpitations, edema, swelling of feet/ankles, dyspnea on exertion or orthopnea Resp: Denies: dyspnea, productive cough or non-productive cough GI: Denies: abdominal pain, nausea, vomiting, diarrhea, constipation or hematochezia : Denies: flank pain, difficulty urinating, dysuria or hematuria Musc: Denies: neck pain, back pain or extremity swelling Skin/Breast: Denies: rash or new lesions Neuro: Denies: headache(s), numbness in extremities or weakness in extremities Psych: Reports: anxiety, depression, visual hallucinations, auditory hallucinations and suicidal ideation; Denies: homicidal ideation [facility] ED PFSH: Medical History (Updated 11/30/22 @ 16:22 by LUIS Ríos) Anxiety Asthma Depression Methamphetamine use PTSD (post-traumatic stress disorder) Surgical History (Updated 11/30/22 @ 08:45 by LUIS Ríos) No pertinent past surgical history Social History Smoking and tobacco status: current some day smoker Physical Exam Const: COMMON NORMALS: patient oriented x3 and alert HENMT: COMMON NORMALS: normocephalic HEAD & SCALP: normocephalic MOUTH: Normal oral and palatal mucosa present THROAT: posterior oropharynx normal and uvula midline Neck/C-Spine: COMMON NORMALS: supple GENERAL: Yes normal visual inspection Resp: COMMON NORMALS: normal respiratory effort, No retractions, No use of accessory muscles and clear to auscultation bilaterally AUSCULTATION: clear to auscultation bilaterally Cardio: COMMON NORMALS: regular rate, regular rhythm, S1 normal heart sound present, S2 normal heart sound present, No gallops present (Cardio), No clicks present (Cardio), No murmurs present (Cardio) and Peripheral pulses 2+ throughout RATE: regular rate RHYTHM: regular rhythm HEART SOUNDS: S1 normal heart sound present and S2 normal heart sound present PERIPHERAL PULSES: Peripheral pulses 2+ throughout GI: COMMON NORMALS: Normal to inspection, nondistended, normoactive bowel sounds present, Soft to palpation, non-tender and no masses PALPATION: Yes Soft to palpation : COMMON NORMALS: Yes no CVA tenderness BLADDER/KIDNEY EXAM: Yes no CVA tenderness Back/Pelvis: COMMON NORMALS: no CVA tenderness Extremity: COMMON NORMALS: normal to inspection Neuro: COMMON NORMALS: patient oriented x3 SENSORIUM/ORIENTATION: Yes alert GAIT: Yes Normal gait present Psych: APPEARANCE: Yes grossly normal ATTITUDE: Yes engaged and Yes agitated ACTIVITY/MOTOR BEHAVIOR: Yes appropriate eye contact SPEECH: Yes rapid Skin: GENERAL SKIN EXAM: dry skin Course Vital Signs: Vital signs: Vital Signs Temperature 98.0 F 11/30/22 08:18 Pulse Rate 85 11/30/22 14:27 Respiratory Rate 18 11/30/22 14:27 Blood Pressure 120/72 11/30/22 14:27 Pulse Oximetry 95 11/30/22 14:27 Oxygen Delivery Me thod Room Air 11/30/22 14:27 MDM - Psych Medical Decision Making Patient is a 27-year-old male who comes to the ED for mental health evaluation. Patient states he has a history of methamphetamine abuse, depression, PTSD and borderline personality disorder. Patient says he is currently not taking any of his medications and has been off them for several months. Patient endorses having suicidal thoughts in the past but says he is not having any current suicidal thoughts today. Patient denies any suicidal plan. patient told nurse that I just want to be done with life, but I do not want to kill myself or anyone. Patient says he is very stressed out and states that his mother treats him like crap and stresses him out. Patient said his son back in 2017 and he has been having troubles dealing with that. Patient endorses hallucinations and says he sees shadow people, ants crawling on him and he also hears voices. Patient states he wants to get stabilized and put back on some medications that can help. Denies any HI. Vitals are stable. Exam of patient shows an anxious and easily agitated patient in no acute distress or pain. He has rapid speech. Rest of exam is benign. All prescreening labs were done and I contacted Dr. Staples the psychiatrist on-call told about patient case. The stress unit did not have any beds available and he recommended transferring patient to another facility. Nursing staff called around 2 facilities and was able to have patient placed at [facility] in [place]. Patient was transferred via EMS. Lab Data I reviewed the patient's lab results. 11/30/22 08:42 11/30/22 08:42 Laboratory Results WBC 15.1 10^3/uL (4.0-10.0) H 11/30/22 08:42 RBC 5.07 10^6/uL (4.1-5.3) 11/30/22 08:42 Hgb 14.8 g/dL (11.7-16.6) 11/30/22 08:42 Hct 44.7 % (42.0-52.0) 11/30/22 08:42 MCV 88.2 fl (80-94) 11/30/22 08:42 MCH 29.2 pg (28.0-34.0) 11/30/22 08:42 MCHC 33.1 g/dL (30.0-36.0) 11/30/22 08:42 RDW 12.9 % (12.1-15.1) 11/30/22 08:42 Plt Count 258 10^3/cmm (130-400) 11/30/22 08:42 MPV 8.8 fL (7.4-10.4) 11/30/22 08:42 Neut % (Auto) 69.0 % 11/30/22 08:42 Lymph % (Auto) 17.1 % 11/30/22 08:42 [place] % (Auto) 9.4 % 11/30/22 08:42 Eos % (Auto) 3.7 % 11/30/22 08:42 Baso % (Auto) 0.4 % 11/30/22 08:42 Neut # (Auto) 10.41 10^3/uL (1.8-7.7) H 11/30/22 08:42 Lymph # (Auto) 2.6 10^3/uL (0.8-4.8) 11/30/22 08:42 [place] # (Auto) 1.4 10^3/uL (0.2-0.9) H 11/30/22 08:42 Eos # (Auto) 0.6 10^3/uL (0.0-0.8) 11/30/22 08:42 Baso # (Auto) 0.1 10^3/uL (0.0-0.1) 11/30/22 08:42 Nucleated RBC % (auto) 0 % 11/30/22 08:42 Nucleated RBCs # 0.0 /100WBC 11/30/22 08:42 Sodium 137 mmol/L (136-145) 11/30/22 08:42 Potassium 4.1 mmol/L (3.5-5.1) 11/30/22 08:42 Chloride 101 mmol/L (98-107) 11/30/22 08:42 Carbon Dioxide 26 mmol/L (22-29) 11/30/22 08:42 Anion Gap 14.1 (5-19) 11/30/22 08:42 BUN 22 mg/dL (6-20) H 11/30/22 08:42 Creatinine 0.9 mg/dL (0.7-1.2) 11/30/22 08:42 GFR Calculation 100.5 mL/min (90-130) 11/30/22 08:42 Glucose 101 mg/dL (65-115) 11/30/22 08:42 Calculated Osmolality 287 mOsm/kg (285-295) 11/30/22 08:42 Calcium 8.9 mg/dL (8.5-10.5) 11/30/22 08:42 Total Bilirubin 0.2 mg/dL (0.15-1.2) 11/30/22 08:42 AST 28 U/L (0-40) 11/30/22 08:42 ALT 47 U/L (0-41) H 11/30/22 08:42 Alkaline Phosphatase 89 U/L (40-130) 11/30/22 08:42 Total Protein 6.9 g/dL (6.6-8.7) 11/30/22 08:42 Albumin 3.9 g/dL (3.5-5.2) 11/30/22 08:42 Globulin 3.0 g/dL (1.3-4.6) 11/30/22 08:42 Urine Color Yellow (Yellow) 11/30/22 09:40 Urine Appearance Clear (CLEAR) 11/30/22 09:40 Urine pH 6 (5-7) 11/30/22 09:40 Ur Specific [place] 1.025 (1.005-1.030) 11/30/22 09:40 Urine Protein Neg (Negative) 11/30/22 09:40 Urine Glucose (UA) Norm (Normal) 11/30/22 09:40 Urine Ketones Negative (Negative) 11/30/22 09:40 Urine Blood Neg (Negative) 11/30/22 09:40 Urine Nitrate Negative (Negative) 11/30/22 09:40 Urine Bilirubin Neg (Negative) 11/30/22 09:40 Urine Urobilinogen Norm mg/dL (Negative) 11/30/22 09:40 Ur Leukocyte Esterase Negative (Negative) 11/30/22 09:40 Salicylates < 0.3 mg/dL (3-10) L 11/30/22 08:42 Urine Opiates Screen Negative ng/mL (Negative) 11/30/22 09:40 Acetaminophen < 5.0 ug/mL (10-30) L 11/30/22 08:42 Ur Barbiturates Screen Negative ng/mL (Negative) 11/30/22 09:40 Ur Phencyclidine Scrn Negative ng/mL (Negative) 11/30/22 09:40 Ur Amphetamines Screen Negative ng/mL (Negative) 11/30/22 09:40 U Benzodiazepines Scrn Negative ng/mL (Negative) 11/30/22 09:40 Urine Cocaine Screen Negative ng/mL (Negative) 11/30/22 09:40 U Marijuana (THC) Screen Positive ng/mL (Negative) H 11/30/22 09:40 Ethyl Alcohol < 10 mg/dL (0-10) 11/30/22 08:42 SARS-CoV-2 Ag (Rapid) negative (Negative) 11/30/22 10:54 Discharge Plan Discharge Patient Disposition: Xfer Psychiatric Hosp Clinical Impression: Suicidal ideation, Hallucinations Condition: Stable Referrals: THAI VÁSQUEZ APRN [Primary Care Provider] - Coding Level of Care Code ED Core Manager for Chg Fwd Documented by User: Stiven Lugo DO 11/30/22 16:57 HPI - Psych General: Chief Complaint: Psychiatric Symptoms Stated Complaint: MHE Time Seen by Provider: 11/30/22 07:58 PFSH ED PFSH: Medical History (Updated 11/30/22 @ 16:22 by LUIS Ríos) Anxiety Asthma Depression Methamphetamine use PTSD (post-traumatic stress disorder) Surgical History (Updated 11/30/22 @ 08:45 by LUIS Ríos) No pertinent past surgical history Social History Smoking and tobacco status: current some day smoker Course Vital Signs: Vital signs: Vital Signs Temperature 98.0 F 11/30/22 08:18 Pulse Rate 85 11/30/22 14:27 Respiratory Rate 18 11/30/22 14:27 Blood Pressure 120/72 11/30/22 14:27 Pulse Oximetry 95 11/30/22 14:27 Oxygen Delivery Me thod Room Air 11/30/22 14:27 MDM - Psych Medical Decision Making Patient is a 27-year-old male who comes to the ED for mental health evaluation. Patient states he has a history of methamphetamine abuse, depression, PTSD and borderline personality disorder. Patient says he is currently not taking any of his medications and has been off them for several months. Patient endorses having suicidal thoughts in the past but says he is not having any current suicidal thoughts today. Patient denies any suicidal plan. patient told nurse that I just want to be done with life, but I do not want to kill myself or anyone. Patient says he is very stressed out and states that his mother treats him like crap and stresses him out. Patient said his son back in 2017 and he has been having troubles dealing with that. Patient endorses hallucinations and says he sees shadow people, ants crawling on him and he also hears voices. Patient states he wants to get stabilized and put back on some medications that can help. Denies any HI. Vitals are stable. Exam of patient shows an anxious and easily agitated patient in no acute distress or pain. He has rapid speech. Rest of exam is benign. All prescreening labs were done and I contacted Dr. Staples the psychiatrist on-call told about patient case. The stress unit did not have any beds available and he recommended transferring patient to another facility. Nursing staff called around 2 facilities and was able to have patient placed at [facility] in [place]. Patient was transferred via EMS. Chart reviewed and patient discussed with midlevel. Agree with assessment and plan. Medical Records I reviewed the patient's medical records. Lab Data I reviewed the patient's lab results. 11/30/22 08:42 11/30/22 08:42 Laboratory Results WBC 15.1 10^3/uL (4.0-10.0) H 11/30/22 08:42 RBC 5.07 10^6/uL (4.1-5.3) 11/30/22 08:42 Hgb 14.8 g/dL (11.7-16.6) 11/30/22 08:42 Hct 44.7 % (42.0-52.0) 11/30/22 08:42 MCV 88.2 fl (80-94) 11/30/22 08:42 MCH 29.2 pg (28.0-34.0) 11/30/22 08:42 MCHC 33.1 g/dL (30.0-36.0) 11/30/22 08:42 RDW 12.9 % (12.1-15.1) 11/30/22 08:42 Plt Count 258 10^3/cmm (130-400) 11/30/22 08:42 MPV 8.8 fL (7.4-10.4) 11/30/22 08:42 Neut % (Auto) 69.0 % 11/30/22 08:42 Lymph % (Auto) 17.1 % 11/30/22 08:42 [place] % (Auto) 9.4 % 11/30/22 08:42 Eos % (Auto) 3.7 % 11/30/22 08:42 Baso % (Auto) 0.4 % 11/30/22 08:42 Neut # (Auto) 10.41 10^3/uL (1.8-7.7) H 11/30/22 08:42 Lymph # (Auto) 2.6 10^3/uL (0.8-4.8) 11/30/22 08:42 [place] # (Auto) 1.4 10^3/uL (0.2-0.9) H 11/30/22 08:42 Eos # (Auto) 0.6 10^3/uL (0.0-0.8) 11/30/22 08:42 Baso # (Auto) 0.1 10^3/uL (0.0-0.1) 11/30/22 08:42 Nucleated RBC % (auto) 0 % 11/30/22 08:42 Nucleated RBCs # 0.0 /100WBC 11/30/22 08:42 Sodium 137 mmol/L (136-145) 11/30/22 08:42 Potassium 4.1 mmol/L (3.5-5.1) 11/30/22 08:42 Chloride 101 mmol/L (98-107) 11/30/22 08:42 Carbon Dioxide 26 mmol/L (22-29) 11/30/22 08:42 Anion Gap 14.1 (5-19) 11/30/22 08:42 BUN 22 mg/dL (6-20) H 11/30/22 08:42 Creatinine 0.9 mg/dL (0.7-1.2) 11/30/22 08:42 GFR Calculation 100.5 mL/min (90-130) 11/30/22 08:42 Glucose 101 mg/dL (65-115) 11/30/22 08:42 Calculated Osmolality 287 mOsm/kg (285-295) 11/30/22 08:42 Calcium 8.9 mg/dL (8.5-10.5) 11/30/22 08:42 Total Bilirubin 0.2 mg/dL (0.15-1.2) 11/30/22 08:42 AST 28 U/L (0-40) 11/30/22 08:42 ALT 47 U/L (0-41) H 11/30/22 08:42 Alkaline Phosphatase 89 U/L (40-130) 11/30/22 08:42 Total Protein 6.9 g/dL (6.6-8.7) 11/30/22 08:42 Albumin 3.9 g/dL (3.5-5.2) 11/30/22 08:42 Globulin 3.0 g/dL (1.3-4.6) 11/30/22 08:42 Urine Color Yellow (Yellow) 11/30/22 09:40 Urine Appearance Clear (CLEAR) 11/30/22 09:40 Urine pH 6 (5-7) 11/30/22 09:40 Ur Specific [place] 1.025 (1.005-1.030) 11/30/22 09:40 Urine Protein Neg (Negative) 11/30/22 09:40 Urine Glucose (UA) Norm (Normal) 11/30/22 09:40 Urine Ketones Negative (Negative) 11/30/22 09:40 Urine Blood Neg (Negative) 11/30/22 09:40 Urine Nitrate Negative (Negative) 11/30/22 09:40 Urine Bilirubin Neg (Negative) 11/30/22 09:40 Urine Urobilinogen Norm mg/dL (Negative) 11/30/22 09:40 Ur Leukocyte Esterase Negative (Negative) 11/30/22 09:40 Salicylates < 0.3 mg/dL (3-10) L 11/30/22 08:42 Urine Opiates Screen Negative ng/mL (Negative) 11/30/22 09:40 Acetaminophen < 5.0 ug/mL (10-30) L 11/30/22 08:42 Ur Barbiturates Screen Negative ng/mL (Negative) 11/30/22 09:40 Ur Phencyclidine Scrn Negative ng/mL (Negative) 11/30/22 09:40 Ur Amphetamines Screen Negative ng/mL (Negative) 11/30/22 09:40 U Benzodiazepines Scrn Negative ng/mL (Negative) 11/30/22 09:40 Urine Cocaine Screen Negative ng/mL (Negative) 11/30/22 09:40 U Marijuana (THC) Screen Positive ng/mL (Negative) H 11/30/22 09:40 Ethyl Alcohol < 10 mg/dL (0-10) 11/30/22 08:42 SARS-CoV-2 Ag (Rapid) negative (Negative) 11/30/22 10:54 Discharge Plan Discharge Patient Disposition: Xfer Psychiatric Hosp Clinical Impression: Suicidal ideation, Hallucinations Condition: Stable Referrals: THAI VÁSQUEZ APRN [Primary Care Provider] - Coding Level of Care Code ED Core Manager for Geovanny Farley
[2022-11-30] MEDS: LORazepam 2 mg Tablet PO (08:38)
[2022-11-30 08:49] LABS: Basophils # 0.1 10^3/uL (0.0-0.1); Basophils % 0.4 %; Eosinophils # 0.6 10^3/uL (0.0-0.8); Eosinophils % 3.7 %; Hematocrit 44.7 % (42.0-52.0); Hemoglobin 14.8 g/dL (11.7-16.6); Lymphocytes # 2.6 10^3/uL (0.8-4.8); Lymphocytes % 17.1 %; Mean Corpuscular HGB Conc 33.1 g/dL (30.0-36.0); Mean Corpuscular Hemoglobin 29.2 pg (28.0-34.0); Mean Corpuscular Volume 88.2 fl (80-94); Mean Platelet Volume 8.8 fL (7.4-10.4); Monocytes # 1.4 10^3/uL (0.2-0.9); Monocytes % 9.4 %; Neutrophils # 10.41 10^3/uL (1.8-7.7); Nucleated Red Blood Cells % 0 %; Platelet Count 258 10^3/cmm (130-400); Red Blood Count 5.07 10^6/uL (4.1-5.3); Red Cell Distribution Width 12.9 % (12.1-15.1); White Blood Count 15.1 10^3/uL (4.0-10.0)
[2022-11-30 09:04] LABS: Alanine Aminotransferase 47 U/L (0-41); Albumin Level 3.9 g/dL (3.5-5.2); Alkaline Phosphatase 89 U/L (40-130); Anion Gap 14.1 (5-19); Aspartate Amino Transferase 28 U/L (0-40); Blood Urea Nitrogen 22 mg/dL (6-20); Calcium 8.9 mg/dL (8.5-10.5); Carbon Dioxide 26 mmol/L (22-29); Chloride 101 mmol/L (98-107); Glomerular Filtration Rate 100.5 mL/min (90-130); Glucose 101 mg/dL (65-115); Osmolality Calculated 287 mOsm/kg (285-295); Potassium 4.1 mmol/L (3.5-5.1); Sodium 137 mmol/L (136-145); Total Bilirubin 0.2 mg/dL (0.15-1.2); Total Protein 6.9 g/dL (6.6-8.7)
[2022-11-30 09:11] LABS: Acetaminophen < 5.0 ug/mL (10-30); Alcohol Level < 10 mg/dL (0-10); Salicylate < 0.3 mg/dL (3-10)
[2022-11-30 09:56] LABS: Add Urine Microscopic? NO; Bilirubin Urine Neg (Negative); Blood Urine Neg (Negative); Glucose Urine UA Norm (Normal); Ketones Urine Negative (Negative); Leukocyte Esterase Urine Negative (Negative); Nitrate Urine Negative (Negative); Protein Urine Neg (Negative); Specific Gravity, Urine 1.025 (1.005-1.030); Urine Appearance Clear (CLEAR); Urine Color Yellow (Yellow); Urobilinogen Urine Norm (Negative); pH Urine 6 (5-7)
[2022-11-30 09:58] LABS: Charge for UA Resulting for Rev
[2022-11-30 10:02] LABS: Amphetamines Screen Urine Negative (Negative); Barbiturates Screen Urine Negative (Negative); Benzodiazepines Screen Urine Negative (Negative); Cocaine Screen Urine Negative (Negative); Opiate Screen Urine Negative (Negative); PCP Screen Urine Negative (Negative); THC Screen Urine Positive (Negative)
--- NOTE | 2022-11-30 10:56 | ECG_ITS ---
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 Measurements Intervals [place] Rate: 77 P: 29 IA: 111 QRS: 71 QRSD: 83 T: 68 QT: 365 QTc: 415 Interpretive Statements SINUS RHYTHM WITH SHORT IA INTERVAL Compared to ECG 05/14/2022 22:54:40 Sinus arrhythmia no longer present Electronically Signed On 11-30-2022 15:40:28 CDT by Blake Lewis M.D. [email or web address] [email or web address] spring[facility] regional medical centerUrban Tax Service and [employer]/store/NU/[id number] f
[2022-11-30 11:03] VITALS: RESP 16
[2022-11-30 11:29] LABS: SARS Covid-2 Antigen negative (Negative)
[2022-11-30 12:47] VITALS: BP 109/74; PULSE 85; RESP 18; O2SAT 95
[2022-11-30 14:27] VITALS: BP 120/72; PULSE 85; RESP 18; O2SAT 95
== END 2022-11-30 14:43 ==
PROVIDERS: Emergency Provider Physician Assistant; PCP Nurse Practitioner Family
DX: R45.851 Suicidal ideations (principal); R44.3 Hallucinations, unspecified
CPT/HCPCS: 36415; 80053; 80306; 80307; 81003; 85025; 87426; 93005; 99284

== ENCOUNTER 2022-12-16 06:18 | Emergency (ER) | payer OTHER, SELFPAY ==
[2022-12-16 06:26] VITALS: BP 128/86; PULSE 116; RESP 16; TEMP 36.9; O2SAT 94; BMI 36.9
--- NOTE | 2022-12-16 07:26 | ED.C_ITS ---
HPI - Psych General: Chief Complaint: Psychiatric Symptoms Stated Complaint: mhe Time Seen by Provider: 12/16/22 06:33 Source: patient History of Present Illness: 27-year-old male who presents emergency room requesting long-term mental health placement. He was recently here and transferred to [facility]. He was discharged yesterday he was given transportation back to the [place] area he tells me he was supposed to be at a homeless jail at [facility] but when he arrived there they were unaware of his pending arrival. He denies any suicidal or homicidal ideation. Patient was here on November 30 and transferred via ambulance to [facility]. complaint: feels depressed Onset (ago): week(s) Duration: constant Relieving factors: none Exacerbating factors: none Associated symptoms: Reports depression; Deny auditory hallucinations, visual hallucinations, delusions, homicidal ideation, suicidal ideation or racing thoughts Review of Systems Const: Denies: fever(s), chills, fatigue or malaise ENMT: Denies: nasal congestion Card: Denies: chest pain, palpitations or edema Resp: Denies: dyspnea, productive cough or non-productive cough GI: Denies: abdominal pain, nausea, vomiting or diarrhea : Denies: flank pain, dysuria, urinary frequency or urinary urgency Skin/Breast: Denies: rash or pruritus Psych: Reports: depression; Denies: visual hallucinations, auditory hallucinations, suicidal ideation or homicidal ideation [facility] ED PFSH: Medical History Anxiety Asthma Depression Methamphetamine use PTSD (post-traumatic stress disorder) Surgical History No pertinent past surgical history Social History Smoking and tobacco status: current some day smoker Physical Exam Const: COMMON NORMALS: no acute distress GENERAL APPEARANCE: cooperative and comfortable ORIENTATION/CONSCIOUSNESS: Yes awake, Yes oriented to person, Yes oriented to place and Yes oriented to time HENMT: COMMON NORMALS: normocephalic, atraumatic and hearing grossly normal bilaterally HEAD & SCALP: normocephalic and atraumatic Resp: COMMON NORMALS: normal respiratory effort, No retractions, No use of accessory muscles and clear to auscultation bilaterally AUSCULTATION: clear to auscultation bilaterally Cardio: COMMON NORMALS: regular rate, regular rhythm and No murmurs present (Cardio) RATE: regular rate RHYTHM: regular rhythm GI: COMMON NORMALS: Soft to palpation and No hepatosplenomegaly present AUSCULTATION: Yes normoactive bowel sounds PALPATION: Yes Soft to palpation, No Tenderness to palpation present (GI), No Guarding due to palpation present (GI) and Yes No hepatosplenomegaly present Extremity: COMMON NORMALS: normal to inspection, capillary refill normal, no clubbing, cyanosis or edema, no calf tenderness and no pedal edema Neuro: SENSORIUM/ORIENTATION: Yes oriented to person, Yes oriented to place and Yes oriented to time Psych: THOUGHT CONTENT: No delusions Skin: COMMON NORMALS: no rashes or lesions noted GENERAL SKIN EXAM: no rashes or lesions noted Course Vital Signs: Vital signs: Vital Signs Temperature 98.4 F 12/16/22 06:26 Pulse Rate 93 12/16/22 10:34 Respiratory Rate 16 12/16/22 10:34 Blood Pressure 126/89 12/16/22 10:34 Pulse Oximetry 98 12/16/22 10:34 Oxygen Delivery Me thod Room Air 12/16/22 06:26 MDM - Psych Medical Decision Making Contacted [facility] and reviewed patient's discharge paperwork he was given. He had declined to allow them to help make any arrangements at the time of discharge he [facility] he has screening at [facility] next week to get established there and get a follow-up appointment. We try to contact [facility] however they were not answering the phone. Discussed with case resource manager [facility] does not hold beds [place] for [facility] first serve basis. Patient denies homicidal or suicidal ideation is just frustrated. He did get his prescriptions electronically prescribed to [facility] but has not been able to get there to pick them up since he was transferred by transportation comes from [facility] to [place] and has not been back to [place]. Patiently discharged from the ER and brought to the crisis management will help him with the logistical challenges he has at this point. Medical Records I reviewed the patient's medical records. Lab Data I reviewed the patient's lab results. 12/16/22 07:17 12/16/22 07:17 Laboratory Results WBC 14.1 10^3/uL (4.0-10.0) H 12/16/22 07:17 RBC 5.21 10^6/uL (4.1-5.3) 12/16/22 07:17 Hgb 15.3 g/dL (11.7-16.6) 12/16/22 07:17 Hct 45.1 % (42.0-52.0) 12/16/22 07:17 MCV 86.6 fl (80-94) 12/16/22 07:17 MCH 29.4 pg (28.0-34.0) 12/16/22 07:17 MCHC 33.9 g/dL (30.0-36.0) 12/16/22 07:17 RDW 12.3 % (12.1-15.1) 12/16/22 07:17 Plt Count 204 10^3/cmm (130-400) 12/16/22 07:17 MPV 8.9 fL (7.4-10.4) 12/16/22 07:17 Neut % (Auto) 67.8 % 12/16/22 07:17 Lymph % (Auto) 18.3 % 12/16/22 07:17 [place] % (Auto) 9.6 % 12/16/22 07:17 Eos % (Auto) 3.5 % 12/16/22 07:17 Baso % (Auto) 0.4 % 12/16/22 07:17 Neut # (Auto) 9.56 10^3/uL (1.8-7.7) H 12/16/22 07:17 Lymph # (Auto) 2.6 10^3/uL (0.8-4.8) 12/16/22 07:17 [place] # (Auto) 1.4 10^3/uL (0.2-0.9) H 12/16/22 07:17 Eos # (Auto) 0.5 10^3/uL (0.0-0.8) 12/16/22 07:17 Baso # (Auto) 0.1 10^3/uL (0.0-0.1) 12/16/22 07:17 Nucleated RBC % (auto) 0 % 12/16/22 07:17 Nucleated RBCs # 0.0 /100WBC 12/16/22 07:17 Sodium 137 mmol/L (136-145) 12/16/22 07:17 Potassium 4.0 mmol/L (3.5-5.1) 12/16/22 07:17 Chloride 99 mmol/L (98-107) 12/16/22 07:17 Carbon Dioxide 28 mmol/L (22-29) 12/16/22 07:17 Anion Gap 14.0 (5-19) 12/16/22 07:17 BUN 18 mg/dL (6-20) 12/16/22 07:17 Creatinine 0.9 mg/dL (0.7-1.2) 12/16/22 07:17 GFR Calculation 100.5 mL/min (90-130) 12/16/22 07:17 Glucose 96 mg/dL (65-115) 12/16/22 07:17 Calculated Osmolality 286 mOsm/kg (285-295) 12/16/22 07:17 Calcium 9.1 mg/dL (8.5-10.5) 12/16/22 07:17 Total Bilirubin 0.4 mg/dL (0.15-1.2) 12/16/22 07:17 AST 25 U/L (0-40) 12/16/22 07:17 ALT 37 U/L (0-41) 12/16/22 07:17 Alkaline Phosphatase 83 U/L (40-130) 12/16/22 07:17 Total Protein 7.1 g/dL (6.6-8.7) 12/16/22 07:17 Albumin 4.1 g/dL (3.5-5.2) 12/16/22 07:17 Globulin 3.0 g/dL (1.3-4.6) 12/16/22 07:17 Salicylates < 0.3 mg/dL (3-10) L 12/16/22 07:17 Acetaminophen < 5.0 ug/mL (10-30) L 12/16/22 07:17 [place] 0.4 mmol/L (0.6-1.2) L 12/16/22 07:17 Discharge Plan Discharge Patient Disposition: Home Clinical Impression: Major depression, Cluster B personality disorder in adult Condition: Stable Prescriptions: No Action venlafaxine 75 mg capsule,extended release 24hr 75 mg PO DAILY trazodone 50 mg tablet 50 mg PO DAILY lithium carbonate 450 mg tablet extended release 450 mg PO DAILY hydroxyzine HCl 25 mg tablet 25 mg PO QID quetiapine 400 mg tablet 400 mg PO DAILY Discharge Orders: Discharge ED (Routine); Ordered 12/16/22 Ordered By: Stiven Lugo Referrals: THAI VÁSQUEZ APRN [Primary Care Provider] - Discharge Diet: Usual diet Discharge Activity: Resume usual activity Patient Instructions: Opioid Safety, Pain Management Activity Restrictions/Additional Instructions: You were evaluated in the emergency room medically cleared. We will discharge her from the emergency room and the staff will take you to the crisis intervention center where they will help you manage your other needs. Coding Level of Care Code ED Psych Tech for Geovanny Farley
[2022-12-16 07:27] LABS: Basophils # 0.1 10^3/uL (0.0-0.1); Basophils % 0.4 %; Eosinophils # 0.5 10^3/uL (0.0-0.8); Eosinophils % 3.5 %; Hematocrit 45.1 % (42.0-52.0); Hemoglobin 15.3 g/dL (11.7-16.6); Lymphocytes # 2.6 10^3/uL (0.8-4.8); Lymphocytes % 18.3 %; Mean Corpuscular HGB Conc 33.9 g/dL (30.0-36.0); Mean Corpuscular Hemoglobin 29.4 pg (28.0-34.0); Mean Corpuscular Volume 86.6 fl (80-94); Mean Platelet Volume 8.9 fL (7.4-10.4); Monocytes # 1.4 10^3/uL (0.2-0.9); Monocytes % 9.6 %; Neutrophils # 9.56 10^3/uL (1.8-7.7); Neutrophils % 67.8 %; Nucleated Red Blood Cells % 0 %; Platelet Count 204 10^3/cmm (130-400); Red Blood Count 5.21 10^6/uL (4.1-5.3); Red Cell Distribution Width 12.3 % (12.1-15.1); White Blood Count 14.1 10^3/uL (4.0-10.0)
[2022-12-16 07:57] LABS: Alanine Aminotransferase 37 U/L (0-41); Albumin Level 4.1 g/dL (3.5-5.2); Alkaline Phosphatase 83 U/L (40-130); Aspartate Amino Transferase 25 U/L (0-40); Blood Urea Nitrogen 18 mg/dL (6-20); Calcium 9.1 mg/dL (8.5-10.5); Carbon Dioxide 28 mmol/L (22-29); Chloride 99 mmol/L (98-107); Creatinine Clr Calc Pharmacy 151.7171; Glomerular Filtration Rate 100.5 mL/min (90-130); Glucose 96 mg/dL (65-115); Osmolality Calculated 286 mOsm/kg (285-295); Sodium 137 mmol/L (136-145); Total Bilirubin 0.4 mg/dL (0.15-1.2); Total Protein 7.1 g/dL (6.6-8.7)
[2022-12-16 08:04] LABS: Acetaminophen < 5.0 ug/mL (10-30); Salicylate < 0.3 mg/dL (3-10)
[2022-12-16 08:45] LABS: Lithium 0.4 mmol/L (0.6-1.2)
[2022-12-16] MEDS: lithium carbonate 150 mg Capsule 450 MG PO (09:54)
[2022-12-16 10:34] VITALS: BP 126/89; PULSE 93; RESP 16; O2SAT 98
== END 2022-12-16 10:36 | disposition home or self-care (01) ==
PROVIDERS: Emergency Provider Family Medicine; PCP Nurse Practitioner Family
DX: F32.A Depression, unspecified (principal); F60.89 Other specific personality disorders; F17.210 Nicotine dependence, cigarettes, uncomplicated
CPT/HCPCS: 36415; 80053; 80178; 80307; 85025; 99283